=== PATIENT | female | born 1950 | race Caucasian/White ===

== ENCOUNTER 2017-03-04 12:51 | Inpatient (IN) ==
--- NOTE | 2017-03-04 14:51 | Emergency Department Note ---
Disposition Clinical Impression: Fever of unknown origin Disposition: Still a Patient Referrals: Corey Phillip MD [Primary Care Provider] - Forms: ED Satisfaction Letter Time of Disposition: 16:53 General Adult HPI - General Chief complaint: ED Fever Stated complaint: Fatigue, fever, joint pain Time Seen by Provider: 03/04/17 14:03 Source: patient, family Mode of arrival: ambulatory Limitations: no limitations Nursing Notes Reviewed: Yes Vital Signs Reviewed: Yes - History of Present Illness HPI Narrative: 66-year-old female Presents to the ED complaining of fever and weakness for one week. she states she has never felt this way before. She states her fever has been between 100.5 and 101.0 for the last week and no Tylenol or ibuprofen as dropped a fever to normal. She states she also has tingling that is in her fingers and toes that comes and goes and is a sharp stabbing pain she states the pain to be 7 out of 10. Patient states the tingling is nonradiating and stays to the fingers and toes it is very random when they occur. Patient also states that she had a tick bite 1.5 weeks ago. It is no signs of rash or bruising around the tick bite. The tick bite was attached for 1 day has not been her normal self recently. They say that she has been forgetting who she is and that she is , she recently stated she was single after she has been for 30 some years. SHe had one bout of diarrhea this morning where was very loose and liquidy stools. She did have a headache on Thursday but it subsided after taking Tylenol. Pain Scale: 6 - Related Data Allergies Allergy/AdvReac Type Severity Reaction Status Date / Time No Known Allergies Allergy Verified 03/04/17 13:00 Constitutional: Reports: fever, chills, weakness, night sweats Eyes: Denies: eye pain, eye discharge, vision change Cardiovascular: Denies: chest pain, palpitations, edema Respiratory: Denies: cough, dyspnea Gastrointestinal: Reports: diarrhea. Denies: abdominal pain, nausea, vomiting Genitourinary: Denies: urgency, dysuria, frequency Musculoskeletal: Denies: back pain, neck pain Integumentary: Reports: lesions (small raised tick bite On left flank). Denies : rash Neurological: Reports: headache, paresthesias. Denies: weakness, numbness Psychiatric: Denies: anxiety, depression Endocrine: Reports: fatigue Hematological/Lymphatic: Denies: easy bleeding Past Medical History - Past Medical History Medical history: Reports: hypertension Surgical history: Reports: cholecystectomy, hysterectomy Psychiatric history: Reports: no psych history - Social History Smoking Status: Never smoker Smokeless Tobacco Status: No Alcohol use: Reports: none Drug use: Reports: none Physical Exam - General Limitations: no limitations General appearance: alert - Head Head exam: atraumatic, normocephalic, normal inspection - Chest Chest inspection: Present: normal inspection, symmetric chest wall rise - Respiratory Respiratory exam: Present: normal lung sounds bilaterally - Cardiovascular Cardiovascular exam: Present: regular rate, normal rhythm, normal heart sounds - Abdominal Exam Abdominal exam: Present: soft, Non-Tender. Absent: tenderness, distention, guarding, rebound, rigidity - Extremities Exam Extremities exam: Present: normal inspection - Expanded Lower Extremity Exam Hip/Pelvis exam: Present: normal inspection - Back Exam Back exam: Present: normal inspection - Neurological Exam Neurological exam: Present: alert, oriented X3 - Skin Skin exam: Present: warm, dry, intact, normal color, other (Tick bite on left flank) Course Course Narrative: Presents to ED complaining of fever and weakness for one week. Patient had a tick bite 1-1/2 weeks ago with no erythema migrans. CBC, CMP, and urinalysis noncontrast head CT to rule out any signs of stroke, infection, electrolyte abnormalities. Upon return of these lab results will consider doing lumbar puncture to check for possible ehlerchiosis or Lyme disease. Cardiac labs are also ordered to rule out cardiac issues causing her fever and weakness. - Reevaluation(s) Reevaluation #1: Evaluation of the patient she is still sitting in bed doing well. Updated her on labs being normal with urinalysis being a possible dirty specimen. CT was negative for signs of head bleed. There was no leukocytosis. With patient still being confused, will order a X ray guided lumbar puncture through interventional radiology due to age of the patient. This will be looking for signs of infection in the CSF patient and family agreed to this plan. Time: 15:56 Vital Signs Temperature 98.0 F 03/04/17 12:55 Pulse Rate 92 03/04/17 12:55 Respiratory Rate 16 03/04/17 12:55 Blood Pressure 116/75 03/04/17 12:55 O2 Sat by Pulse Oximetry 96 03/04/17 12:55 Temperature 98.0 F 03/04/17 12:55 Pulse Rate 89 03/04/17 15:00 Respiratory Rate 16 03/04/17 15:00 Blood Pressure 129/80 03/04/17 15:00 O2 Sat by Pulse Oximetry 95 03/04/17 15:00 Oxygen Delivery Oxygen Delivery Room Air Medical Decision Making - MDM Narrative Medical decision making narrative: Female presents to the ED with fever and weakness for 1 week following a tick bite 1.5 weeks ago. Due to weakness CMP CBC and urinalysis were ran. A chest x -ray and CT without contrast was done. Labs came back negative for signs of infection and electrolyte abnormalities. Urinalysis was a dirty catch. Chest x -ray and head CT were normal. After talking to patient we decided a lumbar puncture via interventional radiology would be the next best step to rule out possibly ehrlichiosis or lyme disease. - Medical Records Medical records reviewed: Yes I reviewed the patient's medical records. - Lab Data Lab results reviewed: Yes I reviewed the patient's lab results. Result diagrams: 03/04/17 15:00 Lab Results 03/04/17 03/04/17 03/04/17 Range/Units 14:22 15:00 15:00 WBC 4.6 (4.3-11.1) K/mcL RBC 4.84 (3.82-4.97) M/mcL Hgb 14.3 (11.5-15.4) g/dL Hct 41.1 (35.3-44.9) % MCV 84.9 (83.0-100.0) fL MCH 29.5 (28.0-33.3) pg MCHC 34.8 (31.6-35.5) g/dL RDW 12.4 (11.5-14.5) % Plt Count 81 L (140-400) K/mcL MPV 12.6 H (9.4-12.4) fL Immature Gran % 0.4 (0-4) % Seg Neutrophils % 81.3 % Lymphocytes % 14.8 % Monocytes % 2.6 % Eosinophils % 0.0 % Basophils % 0.9 % Neutrophils # 3.7 (1.6-8.9) K/mcL Lymphocytes # 0.7 (0.6-4.6) K/mcL Monocytes # 0.1 (0.0-1.3) K/mcL Eosinophils # 0.0 (0.0-0.6) K/mcL Basophils # 0.0 (0.0-0.2) K/mcL Immature Plt Fraction 19.5 H (1.1-6.1) % ESR 7 (0-15) mm/hr PT (9.4-12.1) Seconds INR Total Bilirubin (0.2-1.2) mg/dL Direct Bilirubin (0.0-0.5) mg/dL Indirect Bilirubin (0.0-1.2) mg/dL AST (5-34) Units/L ALT (0-55) Units/L Alkaline Phosphatase (38-126) Units/L Troponin I (0-0.03) ng/mL B-Natriuretic Peptide (0-100) pg/mL Serum Total Protein (6.0-8.3) g/dL Albumin (3.5-5.0) g/dL Globulin (2.4-3.5) g/dL Albumin/Globulin Ratio (1.1-2.2) Urine Color Dark Yellow (Yellow) Urine Clarity Cloudy A (Clear) Urine pH 6.0 (5.0-8.0) pH Units Ur Specific [place] 1.020 (1.010-1.025) Urine Protein 30 H (Neg-Trace) mg/dL Urine Glucose (UA) Normal (Normal) mg/dL Urine Ketones Trace H (Negative) mg/dL Urine Blood Negative (Negative) Urine Nitrite Negative (Negative) Urine Bilirubin Small H (Negative) Urine Urobilinogen Normal (Normal) mg/dL Ur Leukocyte Esterase Negative (Negative) Urine Microscopic RBC 0-3 (0-3) per hpf Urine Microscopic WBC 5-15 H (0-3) per hpf Ur Squamous Epith Cells Many H (None-Few) per lpf Urine Bacteria Moderate H (None-Few) per hpf Hyaline Casts Few (None-Few) per lpf Urine Mucus Few (Few) Urine Yeast Few H (None Seen) per hpf Ur Culture Indicated? YES A (NO) 03/04/17 03/04/17 03/04/17 Range/Units 15:00 15:00 15:00 WBC (4.3-11.1) K/mcL RBC (3.82-4.97) M/mcL Hgb (11.5-15.4) g/dL Hct (35.3-44.9) % MCV (83.0-100.0) fL MCH (28.0-33.3) pg MCHC (31.6-35.5) g/dL RDW (11.5-14.5) % Plt Count (140-400) K/mcL MPV (9.4-12.4) fL Immature Gran % (0-4) % Seg Neutrophils % % Lymphocytes % % Monocytes % % Eosinophils % % Basophils % % Neutrophils # (1.6-8.9) K/mcL Lymphocytes # (0.6-4.6) K/mcL Monocytes # (0.0-1.3) K/mcL Eosinophils # (0.0-0.6) K/mcL Basophils # (0.0-0.2) K/mcL Immature Plt Fraction (1.1-6.1) % ESR (0-15) mm/hr PT 13.6 H (9.4-12.1) Seconds INR 1.3 Total Bilirubin 1.7 H (0.2-1.2) mg/dL Direct Bilirubin 0.7 H (0.0-0.5) mg/dL Indirect Bilirubin 1.0 (0.0-1.2) mg/dL AST 75 H (5-34) Units/L ALT 77 H (0-55) Units/L Alkaline Phosphatase 95 (38-126) Units/L Troponin I 0.00 (0-0.03) ng/mL B-Natriuretic Peptide (0-100) pg/mL Serum Total Protein 7.3 (6.0-8.3) g/dL Albumin 3.8 (3.5-5.0) g/dL Globulin 3.5 (2.4-3.5) g/dL Albumin/Globulin Ratio 1.1 (1.1-2.2) Urine Color (Yellow) Urine Clarity (Clear) Urine pH (5.0-8.0) pH Units Ur Specific [place] (1.010-1.025) Urine Protein (Neg-Trace) mg/dL Urine Glucose (UA) (Normal) mg/dL Urine Ketones (Negative) mg/dL Urine Blood (Negative) Urine Nitrite (Negative) Urine Bilirubin (Negative) Urine Urobilinogen (Normal) mg/dL Ur Leukocyte Esterase (Negative) Urine Microscopic RBC (0-3) per hpf Urine Microscopic WBC (0-3) per hpf Ur Squamous Epith Cells (None-Few) per lpf Urine Bacteria (None-Few) per hpf Hyaline Casts (None-Few) per lpf Urine Mucus (Few) Urine Yeast (None Seen) per hpf Ur Culture Indicated? (NO) 03/04/17 Range/Units 15:00 WBC (4.3-11.1) K/mcL RBC (3.82-4.97) M/mcL Hgb (11.5-15.4) g/dL Hct (35.3-44.9) % MCV (83.0-100.0) fL MCH (28.0-33.3) pg MCHC (31.6-35.5) g/dL RDW (11.5-14.5) % Plt Count (140-400) K/mcL MPV (9.4-12.4) fL Immature Gran % (0-4) % Seg Neutrophils % % Lymphocytes % % Monocytes % % Eosinophils % % Basophils % % Neutrophils # (1.6-8.9) K/mcL Lymphocytes # (0.6-4.6) K/mcL Monocytes # (0.0-1.3) K/mcL Eosinophils # (0.0-0.6) K/mcL Basophils # (0.0-0.2) K/mcL Immature Plt Fraction (1.1-6.1) % ESR (0-15) mm/hr PT (9.4-12.1) Seconds INR Total Bilirubin (0.2-1.2) mg/dL Direct Bilirubin (0.0-0.5) mg/dL Indirect Bilirubin (0.0-1.2) mg/dL AST (5-34) Units/L ALT (0-55) Units/L Alkaline Phosphatase (38-126) Units/L Troponin I (0-0.03) ng/mL B-Natriuretic Peptide 37 (0-100) pg/mL Serum Total Protein (6.0-8.3) g/dL Albumin (3.5-5.0) g/dL Globulin (2.4-3.5) g/dL Albumin/Globulin Ratio (1.1-2.2) Urine Color (Yellow) Urine Clarity (Clear) Urine pH (5.0-8.0) pH Units Ur Specific [place] (1.010-1.025) Urine Protein (Neg-Trace) mg/dL Urine Glucose (UA) (Normal) mg/dL Urine Ketones (Negative) mg/dL Urine Blood (Negative) Urine Nitrite (Negative) Urine Bilirubin (Negative) Urine Urobilinogen (Normal) mg/dL Ur Leukocyte Esterase (Negative) Urine Microscopic RBC (0-3) per hpf Urine Microscopic WBC (0-3) per hpf Ur Squamous Epith Cells (None-Few) per lpf Urine Bacteria (None-Few) per hpf Hyaline Casts (None-Few) per lpf Urine Mucus (Few) Urine Yeast (None Seen) per hpf Ur Culture Indicated? (NO) - Radiology Data Radiology results reviewed: Yes I reviewed the patient's radiology results.
[2017-03-04 15:08] LABS: Bilirubin,Urine Small (Negative); Blood,Urine Negative (Negative); Clarity,Urine Cloudy (Clear); Color,Urine Dark Yellow (Yellow); Glucose,Urine (UA) Normal (Normal); Ketones,Urine Trace mg/dL (Negative); Leukocyte Esterase,Urine Negative (Negative); Nitrite,Urine Negative (Negative); Protein,Urine 30 mg/dL (Neg-Trace); Urobilinogen,Urine Normal (Normal)
[2017-03-04 15:11] LABS: Hyaline Casts,Urine Few per lpf (None-Few); RBC,Urine 0-3 per hpf (0-3); Squamous Epithelial Cell,Urine Many per lpf (None-Few)
[2017-03-04 15:14] LABS: Basophils % 0.9 %; Hemoglobin 14.3 g/dL (11.5-15.4); Mean Corpuscular Hemoglobin 29.5 pg (28.0-33.3); Mean Corpuscular Volume 84.9 fL (83.0-100.0); Red Cell Distribution Width 12.4 % (11.5-14.5)
[2017-03-04 15:16] LABS: Hematocrit 41.1 % (35.3-44.9); Immature Granulocytes % 0.4 % (0-4); Immature Platelets 19.5 % (1.1-6.1); Lymphocytes # 0.7 K/mcL (0.6-4.6); Lymphocytes % 14.8 %; Mean Corpuscular HGB Conc 34.8 g/dL (31.6-35.5); Mean Platelet Volume 12.6 fL (9.4-12.4); Monocytes # 0.1 K/mcL (0.0-1.3); Monocytes % 2.6 %; Neutrophils # 3.7 K/mcL (1.6-8.9); Red Blood Count 4.84 M/mcL (3.82-4.97); Segmented Neutrophils % 81.3 %
[2017-03-04 15:25] LABS: INR 1.3; Prothrombin Time 13.6 Seconds (9.4-12.1)
[2017-03-04 15:30] LABS: Bacteria,Urine Moderate per hpf (None-Few); Mucus,Urine Few (Few); Yeast,Urine Few per hpf (None Seen)
[2017-03-04 15:31] LABS: Alanine Aminotransferase 77 Units/L (0-55); Albumin 3.8 g/dL (3.5-5.0); Albumin/Globulin Ratio 1.1 (1.1-2.2); Alkaline Phosphatase 95 Units/L (38-126); Aspartate Amino Transferase 75 Units/L (5-34); Bilirubin,Direct 0.7 mg/dL (0.0-0.5); Bilirubin,Total 1.7 mg/dL (0.2-1.2); Globulin 3.5 g/dL (2.4-3.5); Total Protein 7.3 g/dL (6.0-8.3)
[2017-03-04 15:33] LABS: Platelet Count 81 K/mcL (140-400)
[2017-03-04] MEDS ORDERED: 0.9 % Sodium Chloride 1,000 ML IVC ONE (15:53)
--- NOTE | 2017-03-04 17:03 | Emergency Department Note ---
Disposition Clinical Impression: Fever of unknown origin, Acute confusion Tick bite Qualifiers: Encounter type: initial encounter Qualified Code(s): W57.XXXA - Bitten or stung by nonvenomous insect and other nonvenomous arthropods, initial encounter Disposition: Admitted As Inpatient Condition: Good Referrals: Corey Phillip MD [Primary Care Provider] - Forms: ED Satisfaction Letter Time of Disposition: 19:28 Fever HPI - General Chief Complaint: ED Fever Stated Complaint: Fatigue, fever, joint pain Time Seen by Provider: 03/04/17 14:03 Source: patient, family Mode of arrival: ambulatory Limitations: no limitations Nursing Notes Reviewed: Yes Vital Signs Reviewed: Yes - History of Present Illness HPI Narrative: Patient signed out to me by Dr. Parry with regards to concern for fever, worsening paresthesias, roughly 1 week after a tick bite. The patient has had a workup here in the emergency department with CSF cultures and labs currently pending. Given the patient's age and medical condition of her back, we will perform interventional radiology to have her lumbar puncture. Patient agrees to this plan. Labs currently pending. The patient is resting comfortably in the bed. The patient has had intermittent episodes of confusion during this complaint. She has been alert and oriented here in the emergency department. Pt Subjective Complaint: fever, malaise, weakness Onset (ago): week(s) (1) Maximum Temperature Reported: 101 F Temperature Source: oral Associated symptoms: Reports: chills, rigors, myalgias, headache, altered mental status Improves with: acetaminophen Worsens with: nothing Treatments prior to arrival fever: acetaminophen - Related Data Allergies Allergy/AdvReac Type Severity Reaction Status Date / Time No Known Allergies Allergy Verified 03/04/17 13:00 All systems ED: reviewed and negative except as stated. Constitutional: Reports: fever, chills, weakness, night sweats Eyes: Denies: eye pain, eye discharge, vision change Cardiovascular: Denies: chest pain, palpitations, edema Respiratory: Denies: cough, dyspnea Gastrointestinal: Reports: diarrhea. Denies: abdominal pain, nausea, vomiting Genitourinary: Denies: urgency, dysuria, frequency Musculoskeletal: Denies: back pain, neck pain Integumentary: Reports: lesions (small raised tick bite On left flank). Denies : rash Neurological: Reports: headache, paresthesias. Denies: weakness, numbness Psychiatric: Denies: anxiety, depression Endocrine: Reports: fatigue Hematological/Lymphatic: Denies: easy bleeding Fever PMH - Past Medical History Medical history: Reports: hypertension Surgical history: Reports: non-contributory Surgical history: Reports: cholecystectomy, hysterectomy Psychiatric history: Reports: no psych history - Social History Smoking Status: Never smoker Alcohol use: Reports: none Drug use: Reports: none Physical Exam - General Limitations: no limitations General appearance: alert, in distress - Head Head exam: atraumatic, normocephalic, normal inspection - Eye Eye exam: Present: normal appearance, PERRL, EOMI - ENT ENT exam: normal exam, normal oropharynx, mucous membranes moist - Chest Chest inspection: Present: normal inspection, symmetric chest wall rise - Respiratory Respiratory exam: Present: normal lung sounds bilaterally - Cardiovascular Cardiovascular exam: Present: regular rate, normal rhythm, normal heart sounds - Abdominal Exam Abdominal exam: Present: soft, Non-Tender. Absent: tenderness, distention, guarding, rebound, rigidity - Extremities Exam Extremities exam: Present: normal inspection, full ROM. Absent: tenderness, pedal edema - Neurological Exam Neurological exam: Present: alert, oriented X3, CN II-XII intact, normal gait. Absent: motor sensory deficit - Skin Skin exam: Present: warm, dry, intact, normal color Course - Reevaluation(s) Reevaluation #1: Patient returned from interventional radiology from lumbar puncture. CSF is fairly unremarkable and x-rays no acute findings. Given the patient's symptoms we consulted neurology. In addition the neurologist requested that we consult infectious disease. We will admit the patient to the hospitalist service. Currently awaiting return call from infectious disease. Ammonia level obtained due to elevated transaminases and bilirubin. Patient has no history of alcohol use or abuse. Time: 18:18 - Consultations Consultation #1: Spoke with Dr. Shore in neurology who agreed that this is likely infectious versus metabolic and unlikely neurological in origin at least with common findings. Time: 18:17 Vital Signs Temperature 98.0 F 03/04/17 12:55 Pulse Rate 92 03/04/17 12:55 Respiratory Rate 16 03/04/17 12:55 Blood Pressure 116/75 03/04/17 12:55 O2 Sat by Pulse Oximetry 96 03/04/17 12:55 Temperature 98.0 F 07/05/17 12:55 Pulse Rate 89 03/04/17 18:03 Respiratory Rate 20 03/04/17 18:03 Blood Pressure 124/70 03/04/17 18:03 O2 Sat by Pulse Oximetry 93 03/04/17 18:03 Oxygen Delivery Oxygen Delivery Room Air Fever - MDM Narrative Medical decision making narrative: Workup in the emergency department demonstrates no acute process. After multiple consultants and labs and imaging studies there is still a fever without unknown origin. We will admit the patient to the hospitalist for further workup. Accepted by Dr. Pope. - Lab Data Lab results reviewed: Yes I reviewed the patient's lab results. Result diagrams: 03/04/17 15:00 03/04/17 15:00 Lab Results 03/04/17 03/04/17 03/04/17 Range/Units 14:22 15:00 15:00 WBC 4.6 (4.3-11.1) K/mcL RBC 4.84 (3.82-4.97) M/mcL Hgb 14.3 (11.5-15.4) g/dL Hct 41.1 (35.3-44.9) % MCV 84.9 (83.0-100.0) fL MCH 29.5 (28.0-33.3) pg MCHC 34.8 (31.6-35.5) g/dL RDW 12.4 (11.5-14.5) % Plt Count 81 L (140-400) K/mcL MPV 12.6 H (9.4-12.4) fL Immature Gran % 0.4 (0-4) % Seg Neutrophils % 81.3 % Lymphocytes % 14.8 % Monocytes % 2.6 % Eosinophils % 0.0 % Basophils % 0.9 % Neutrophils # 3.7 (1.6-8.9) K/mcL Lymphocytes # 0.7 (0.6-4.6) K/mcL Monocytes # 0.1 (0.0-1.3) K/mcL Eosinophils # 0.0 (0.0-0.6) K/mcL Basophils # 0.0 (0.0-0.2) K/mcL Immature Plt Fraction 19.5 H (1.1-6.1) % ESR 7 (0-15) mm/hr PT (9.4-12.1) Seconds INR Sodium (136-145) mEq/L Potassium (3.5-4.5) mEq/L Chloride (98-109) mEq/L Carbon Dioxide (19-29) mEq/L BUN (7-20) mg/dL Creatinine (0.57-1.11) mg/dL Est GFR ( Amer) (> 60) Est GFR (Non-Af Amer) (> 60) BUN/Creatinine Ratio (6-26) Glucose (70-99) mg/dL Calculated Osmolality (280-300) Calcium (8.6-10.8) mg/dL Total Bilirubin (0.2-1.2) mg/dL Direct Bilirubin (0.0-0.5) mg/dL Indirect Bilirubin (0.0-1.2) mg/dL AST (5-34) Units/L ALT (0-55) Units/L Alkaline Phosphatase (38-126) Units/L Ammonia (18-72) mcmol/L Troponin I (0-0.03) ng/mL B-Natriuretic Peptide (0-100) pg/mL Serum Total Protein (6.0-8.3) g/dL Albumin (3.5-5.0) g/dL Globulin (2.4-3.5) g/dL Albumin/Globulin Ratio (1.1-2.2) Urine Color Dark Yellow (Yellow) Urine Clarity Cloudy A (Clear) Urine pH 6.0 (5.0-8.0) pH Units Ur Specific [place] 1.020 (1.010-1.025) Urine Protein 30 H (Neg-Trace) mg/dL Urine Glucose (UA) Normal (Normal) mg/dL Urine Ketones Trace H (Negative) mg/dL Urine Blood Negative (Negative) Urine Nitrite Negative (Negative) Urine Bilirubin Small H (Negative) Urine Urobilinogen Normal (Normal) mg/dL Ur Leukocyte Esterase Negative (Negative) Urine Microscopic RBC 0-3 (0-3) per hpf Urine Microscopic WBC 5-15 H (0-3) per hpf Ur Squamous Epith Cells Many H (None-Few) per lpf Urine Bacteria Moderate H (None-Few) per hpf Hyaline Casts Few (None-Few) per lpf Urine Mucus Few (Few) Urine Yeast Few H (None Seen) per hpf Ur Culture Indicated? YES A (NO) CSF Volume mL CSF Appearance (Clear) CSF Color (Colorless) CSF RBC (0.000 - 0.002) M/mcL CSF Tot Nucleated Cells (0-5) TNC/mcL CSF Glucose (40-70) mg/dL CSF Total Protein (15-45) mg/dL 03/04/17 03/04/17 03/04/17 Range/Units 15:00 15:00 15:00 WBC (4.3-11.1) K/mcL RBC (3.82-4.97) M/mcL Hgb (11.5-15.4) g/dL Hct (35.3-44.9) % MCV (83.0-100.0) fL MCH (28.0-33.3) pg MCHC (31.6-35.5) g/dL RDW (11.5-14.5) % Plt Count (140-400) K/mcL MPV (9.4-12.4) fL Immature Gran % (0-4) % Seg Neutrophils % % Lymphocytes % % Monocytes % % Eosinophils % % Basophils % % Neutrophils # (1.6-8.9) K/mcL Lymphocytes # (0.6-4.6) K/mcL Monocytes # (0.0-1.3) K/mcL Eosinophils # (0.0-0.6) K/mcL Basophils # (0.0-0.2) K/mcL Immature Plt Fraction (1.1-6.1) % ESR (0-15) mm/hr PT 13.6 H (9.4-12.1) Seconds INR 1.3 Sodium 132 L (136-145) mEq/L Potassium 3.2 L (3.5-4.5) mEq/L Chloride 94 L (98-109) mEq/L Carbon Dioxide 26 (19-29) mEq/L BUN 14 (7-20) mg/dL Creatinine 0.90 (0.57-1.11) mg/dL Est GFR ( Amer) > 60 (> 60) Est GFR (Non-Af Amer) > 60 (> 60) BUN/Creatinine Ratio 16 (6-26) Glucose 122 H (70-99) mg/dL Calculated Osmolality 276 L (280-300) Calcium 9.1 (8.6-10.8) mg/dL Total Bilirubin 1.7 H (0.2-1.2) mg/dL Direct Bilirubin 0.7 H (0.0-0.5) mg/dL Indirect Bilirubin 1.0 (0.0-1.2) mg/dL AST 75 H (5-34) Units/L ALT 77 H (0-55) Units/L Alkaline Phosphatase 95 (38-126) Units/L Ammonia (18-72) mcmol/L Troponin I 0.00 (0-0.03) ng/mL B-Natriuretic Peptide (0-100) pg/mL Serum Total Protein 7.3 (6.0-8.3) g/dL Albumin 3.8 (3.5-5.0) g/dL Globulin 3.5 (2.4-3.5) g/dL Albumin/Globulin Ratio 1.1 (1.1-2.2) Urine Color (Yellow) Urine Clarity (Clear) Urine pH (5.0-8.0) pH Units Ur Specific [place] (1.010-1.025) Urine Protein (Neg-Trace) mg/dL Urine Glucose (UA) (Normal) mg/dL Urine Ketones (Negative) mg/dL Urine Blood (Negative) Urine Nitrite (Negative) Urine Bilirubin (Negative) Urine Urobilinogen (Normal) mg/dL Ur Leukocyte Esterase (Negative) Urine Microscopic RBC (0-3) per hpf Urine Microscopic WBC (0-3) per hpf Ur Squamous Epith Cells (None-Few) per lpf Urine Bacteria (None-Few) per hpf Hyaline Casts (None-Few) per lpf Urine Mucus (Few) Urine Yeast (None Seen) per hpf Ur Culture Indicated? (NO) CSF Volume mL CSF Appearance (Clear) CSF Color (Colorless) CSF RBC (0.000 - 0.002) M/mcL CSF Tot Nucleated Cells (0-5) TNC/mcL CSF Glucose (40-70) mg/dL CSF Total Protein (15-45) mg/dL 03/04/17 03/04/17 03/04/17 Range/Units 15:00 16:55 16:55 WBC (4.3-11.1) K/mcL RBC (3.82-4.97) M/mcL Hgb (11.5-15.4) g/dL Hct (35.3-44.9) % MCV (83.0-100.0) fL MCH (28.0-33.3) pg MCHC (31.6-35.5) g/dL RDW (11.5-14.5) % Plt Count (140-400) K/mcL MPV (9.4-12.4) fL Immature Gran % (0-4) % Seg Neutrophils % % Lymphocytes % % Monocytes % % Eosinophils % % Basophils % % Neutrophils # (1.6-8.9) K/mcL Lymphocytes # (0.6-4.6) K/mcL Monocytes # (0.0-1.3) K/mcL Eosinophils # (0.0-0.6) K/mcL Basophils # (0.0-0.2) K/mcL Immature Plt Fraction (1.1-6.1) % ESR (0-15) mm/hr PT (9.4-12.1) Seconds INR Sodium (136-145) mEq/L Potassium (3.5-4.5) mEq/L Chloride (98-109) mEq/L Carbon Dioxide (19-29) mEq/L BUN (7-20) mg/dL Creatinine (0.57-1.11) mg/dL Est GFR ( Amer) (> 60) Est GFR (Non-Af Amer) (> 60) BUN/Creatinine Ratio (6-26) Glucose (70-99) mg/dL Calculated Osmolality (280-300) Calcium (8.6-10.8) mg/dL Total Bilirubin (0.2-1.2) mg/dL Direct Bilirubin (0.0-0.5) mg/dL Indirect Bilirubin (0.0-1.2) mg/dL AST (5-34) Units/L ALT (0-55) Units/L Alkaline Phosphatase (38-126) Units/L Ammonia (18-72) mcmol/L Troponin I (0-0.03) ng/mL B-Natriuretic Peptide 37 (0-100) pg/mL Serum Total Protein (6.0-8.3) g/dL Albumin (3.5-5.0) g/dL Globulin (2.4-3.5) g/dL Albumin/Globulin Ratio (1.1-2.2) Urine Color (Yellow) Urine Clarity (Clear) Urine pH (5.0-8.0) pH Units Ur Specific [place] (1.010-1.025) Urine Protein (Neg-Trace) mg/dL Urine Glucose (UA) (Normal) mg/dL Urine Ketones (Negative) mg/dL Urine Blood (Negative) Urine Nitrite (Negative) Urine Bilirubin (Negative) Urine Urobilinogen (Normal) mg/dL Ur Leukocyte Esterase (Negative) Urine Microscopic RBC (0-3) per hpf Urine Microscopic WBC (0-3) per hpf Ur Squamous Epith Cells (None-Few) per lpf Urine Bacteria (None-Few) per hpf Hyaline Casts (None-Few) per lpf Urine Mucus (Few) Urine Yeast (None Seen) per hpf Ur Culture Indicated? (NO) CSF Volume 7.0 mL CSF Appearance Clear (Clear) CSF Color Colorless (Colorless) CSF RBC < 0.002 (0.000 - 0.002) M/mcL CSF Tot Nucleated Cells < 3 (0-5) TNC/mcL CSF Glucose 71 H (40-70) mg/dL CSF Total Protein 18 (15-45) mg/dL 03/04/17 Range/Units 18:16 WBC (4.3-11.1) K/mcL RBC (3.82-4.97) M/mcL Hgb (11.5-15.4) g/dL Hct (35.3-44.9) % MCV (83.0-100.0) fL MCH (28.0-33.3) pg MCHC (31.6-35.5) g/dL RDW (11.5-14.5) % Plt Count (140-400) K/mcL MPV (9.4-12.4) fL Immature Gran % (0-4) % Seg Neutrophils % % Lymphocytes % % Monocytes % % Eosinophils % % Basophils % % Neutrophils # (1.6-8.9) K/mcL Lymphocytes # (0.6-4.6) K/mcL Monocytes # (0.0-1.3) K/mcL Eosinophils # (0.0-0.6) K/mcL Basophils # (0.0-0.2) K/mcL Immature Plt Fraction (1.1-6.1) % ESR (0-15) mm/hr PT (9.4-12.1) Seconds INR Sodium (136-145) mEq/L Potassium (3.5-4.5) mEq/L Chloride (98-109) mEq/L Carbon Dioxide (19-29) mEq/L BUN (7-20) mg/dL Creatinine (0.57-1.11) mg/dL Est GFR ( Amer) (> 60) Est GFR (Non-Af Amer) (> 60) BUN/Creatinine Ratio (6-26) Glucose (70-99) mg/dL Calculated Osmolality (280-300) Calcium (8.6-10.8) mg/dL Total Bilirubin (0.2-1.2) mg/dL Direct Bilirubin (0.0-0.5) mg/dL Indirect Bilirubin (0.0-1.2) mg/dL AST (5-34) Units/L ALT (0-55) Units/L Alkaline Phosphatase (38-126) Units/L Ammonia 17 L (18-72) mcmol/L Troponin I (0-0.03) ng/mL B-Natriuretic Peptide (0-100) pg/mL Serum Total Protein (6.0-8.3) g/dL Albumin (3.5-5.0) g/dL Globulin (2.4-3.5) g/dL Albumin/Globulin Ratio (1.1-2.2) Urine Color (Yellow) Urine Clarity (Clear) Urine pH (5.0-8.0) pH Units Ur Specific [place] (1.010-1.025) Urine Protein (Neg-Trace) mg/dL Urine Glucose (UA) (Normal) mg/dL Urine Ketones (Negative) mg/dL Urine Blood (Negative) Urine Nitrite (Negative) Urine Bilirubin (Negative) Urine Urobilinogen (Normal) mg/dL Ur Leukocyte Esterase (Negative) Urine Microscopic RBC (0-3) per hpf Urine Microscopic WBC (0-3) per hpf Ur Squamous Epith Cells (None-Few) per lpf Urine Bacteria (None-Few) per hpf Hyaline Casts (None-Few) per lpf Urine Mucus (Few) Urine Yeast (None Seen) per hpf Ur Culture Indicated? (NO) CSF Volume mL CSF Appearance (Clear) CSF Color (Colorless) CSF RBC (0.000 - 0.002) M/mcL CSF Tot Nucleated Cells (0-5) TNC/mcL CSF Glucose (40-70) mg/dL CSF Total Protein (15-45) mg/dL - Radiology Data Radiology results reviewed: Yes I reviewed the patient's radiology results.
[2017-03-04 17:43] LABS: Red Blood Cell,CSF < 0.002 M/mcL
[2017-03-04 17:45] LABS: BUN/Creatinine Ratio 16 (6-26); Blood Urea Nitrogen 14 mg/dL (7-20); Calcium 9.1 mg/dL (8.6-10.8); Carbon Dioxide 26 mEq/L (19-29); Chloride 94 mEq/L (98-109); Glucose 122 mg/dL (70-99); Osmolality,Calculated 276 (280-300); Potassium 3.2 mEq/L (3.5-4.5); Sodium 132 mEq/L (136-145); eGFR For African Americans > 60 (> 60); eGFR For Non-African Americans > 60 (> 60)
[2017-03-04 17:47] LABS: Appearance,CSF Clear (Clear)
[2017-03-04] MEDS ORDERED: Ondansetron 4 MG/2 ML VIAL ONE (17:50)
[2017-03-04] MEDS: Ondansetron 4 MG/2 ML VIAL IVP ONE ×2 (17:57→18:02)
[2017-03-04 18:01] LABS: Glucose,CSF 71 mg/dL (40-70); Total Protein,CSF 18 mg/dL (15-45)
[2017-03-04] MEDS ORDERED: Potassium Chloride Elixir 20 MEQ/15 ML UDC PO ONE (19:37)
[2017-03-04] MEDS ORDERED: Naloxone 0.4 MG/ML INJ IVP PRN (19:45)
[2017-03-04] MEDS ORDERED: Ondansetron 4 MG/2 ML VIAL IVP PRN (19:45)
--- NOTE | 2017-03-04 20:06 | Internal Med History&Physical ---
Date of Encounter: 03/04/17 Time of Encounter: 20:04 Assessment and Plan (1) Acute encephalopathy Current visit: Yes Status: Acute based on the chronology of events this is most likely related to the tick bite, CSF from the lumbar puncture was grossly normal, no leucocytosis noted, though she reported subjective fevers, none has been recorded since her presentation, we will follow microbiology and serology, neurology and infectious disease to weigh in (2) Tick bite Current visit: Yes Status: Acute as reported above, at this time we are unable to verify which species of tick patient encountered, her EKG was essentially normal except TW abnormality, an old EKG was unavailable for comparison, Qualifiers: Encounter type: initial encounter Qualified Code(s): W57.XXXA - Bitten or stung by nonvenomous insect and other nonvenomous arthropods, initial encounter (3) Hypokalemia Current visit: Yes Status: Acute nay be related to inadequate intake and GI loss, we will replace and follow BMP (4) HTN (hypertension) Current visit: Yes Status: Chronic normotensive on admission, she is on low doses of antihypertensives which we will continue with holding parameters of SBP<90mmHg and HR<55bpm Qualifiers: Hypertension type: essential hypertension Qualified Code(s): I10 - Essential (primary) hypertension Internal Medicine - H&P: HPI Chief complaint: fever and confusion Admitted From: Emergency Dept Plans for Post Hospital Care: Home History of present illness: Ms. Lucia is a 66 year old female with a history of prior tick bites in November that was uncomplicated who was brought in this evening with fever and confusion. She reports that about 1.5 weeks ago she went raspberry picking with her and later found 4 ticks on her body. 2 were just moving around but the other 2 were attached to her abdomen and left side, she got the abdominal wall tick off and her removed the one on her left side. She feels that these ticks had been attached for about a day. Subsequently a week prior to presentation she began to have intermittent fevers, generalized malaise, one time headache that was new, sensation of tingling and numbness at the tips of her fingers and toes. No neck pain reported but she feels that since she has been lying in bed mostly for the past 2 days her neck feels stiff. She denies any rash at the locations of these tick bites, she reports confusion for the past couple of days as well as chills and nausea with loose stools today. Her appetite is poor and she has subjectively lost about 10LBS in one week. She has had tick bites in the past but none has been followed by these constellation of symptoms. Past Med Surg Social Fam HX - Past Medical History Source: patient, old records reviewed Medical history: hypertension, other (irregular heart beat) Psychiatric history: no psych history - Past Surgical History Surgical History: cholecystectomy (2005), hysterectomy (2000), other (reduction mammoplasty 1991, polypectomy during colonoscopy) - Social History Smoking Status: Never smoker Smokeless Tobacco Status: No Alcohol use: none Drug use: none Current living situation: Home - Independent Activity Level: Independent ambulation - Family History Mother Living Status: Age at : 86 Cause of : Dementia Hx Family Cardiac Disorders: Yes Father Living Status: Age at : 67 Cause of : Liver cancer Hx Family Cancer: Yes Paternal Grandmother Living Status: Cause of : Stroke Maternal Grandmother Living Status: Hx Family Cardiac Disorders: Yes (CHF) - Additional Family History Additional family history: both father and uncle have liver cancer, both parents have heart disease, maternal grandmother had a stroke, Internal Medicine - H&P: Meds Aspirin Enteric Coated [Aspirin EC] 81 mg PO DAILY 03/04/17 [History] Carvedilol [Coreg] 6.25 mg PO BIDWM 03/04/17 [History] Cholecalciferol (Vitamin D3) [Vitamin D3] 5,000 unit PO DAILY 03/04/17 [History] Indapamide [Lozol] 1.25 mg PO DAILY 03/04/17 [History] Lisinopril 2.5 mg PO DAILY 03/04/17 [History] Simvastatin [Zocor] 40 mg PO HS 03/04/17 [History] Allergies No Known Allergies Allergy (Verified 03/04/17 13:00) All Systems PM: A 10-system review of systems was performed and is negative for pertinent findings except as documented above in the HPI. - Constitutional Vitals: Temp Pulse Resp BP Pulse Ox 98.0 F 89 20 124/70 93 03/04/17 12:55 03/04/17 18:03 03/04/17 18:03 03/04/17 18:03 03/04/17 18:03 GENERAL: Adult female, looking miserable, Alert, HEENT: NC/AT, EOMI, PERRLA, anicteric sclera, normal conjunctiva, supple, clear nares, dry mucous membranes, RESP: Lungs are clear to auscultation bilaterally, good AE bilaterally, No crackles or wheeze CARDIO: Normal hearts sounds; S1 and 2, RRR with no murmurs, no JVD, no ankle edema GI: Soft, full, no tenderness, no organomegaly felt, normal bowel sounds heard MUSCULOSKELETAL: grossly normal movements bilaterally, no deformities noted, no calf tenderness NEUROLOGIC: CN 2-12 intact grossly. No motor/sensory deficit appreciated, PSYCHIATRY: AAO x 3. SKIN: no skin rash, tick bites noted Internal Med - H&P Results - Labs CBC & Chem 7: 03/04/17 15:00 03/04/17 15:00 - Diagnostic Studies Chest x-ray Status: image reviewed by me CT scan - head Status: image reviewed by me
[2017-03-04] MEDS: Acetaminophen 325 MG TABLET PO PRN (21:03)
[2017-03-05] MEDS: *HR* Heparin 5,000 UNIT/ML VIAL SQ SCH ×2 (00:48→12:54)
[2017-03-05] MEDS: Acetaminophen 325 MG TABLET PO PRN ×2 (03:20→22:35)
[2017-03-05 06:44] LABS: Hematocrit 33.3 % (35.3-44.9); Hemoglobin 11.6 g/dL (11.5-15.4); Immature Platelets 22.2 % (1.1-6.1); Mean Corpuscular HGB Conc 34.8 g/dL (31.6-35.5); Mean Corpuscular Hemoglobin 29.2 pg (28.0-33.3); Mean Corpuscular Volume 83.9 fL (83.0-100.0); Mean Platelet Volume 13.9 fL (9.4-12.4); Monocytes # 0.1 K/mcL (0.0-1.3); Red Blood Count 3.97 M/mcL (3.82-4.97); Red Cell Distribution Width 12.3 % (11.5-14.5)
[2017-03-05 06:55] LABS: BUN/Creatinine Ratio 19 (6-26); Blood Urea Nitrogen 17 mg/dL (7-20); Calcium 7.9 mg/dL (8.6-10.8); Carbon Dioxide 27 mEq/L (19-29); Chloride 97 mEq/L (98-109); Glucose 124 mg/dL (70-99); Magnesium 1.4 mg/dL (1.6-2.6); Osmolality,Calculated 279 (280-300); Phosphorous 2.4 mg/dL (2.3-4.7); Platelet Count 60 K/mcL (140-400); Potassium 2.6 mEq/L (3.5-4.5); Sodium 133 mEq/L (136-145); eGFR For African Americans > 60 (> 60); eGFR For Non-African Americans > 60 (> 60)
[2017-03-05 07:55] LABS: Lymphocytes # 0.9 K/mcL (0.6-4.6); Neutrophils # 4.4 K/mcL (1.6-8.9); Platelet Estimate Decreased (Normal)
[2017-03-05] MEDS: Aspirin Enteric Coated 81 MG Tablet PO SCH (08:27)
[2017-03-05] MEDS: Cholecalciferol (D-3) 1,000 UNIT TABLET PO SCH (08:29)
[2017-03-05] MEDS ORDERED: Potassium Chloride 30 MEQ, Lidocaine 1% 2 ML in D5% in Water 500 ML IVPB ONE (09:19)
--- NOTE | 2017-03-05 12:30 | Electrocardiograph Report ---
[address] [place] [address] Test Date: 2017-03-05 Pat Name: Carine Lucia Department: 113 Room: 3B11 Gender: F [employer] Helper: [id number] : 1950 Requested By: Jair Samaniego Order Number: [id number] Reading MD: Iraj Smith MD Measurements Intervals [place] Rate: 92 P: 35 TX: 173 QRS: 6 QRSD: 106 T: 32 QT: 381 QTc: 431 Interpretive Statements SINUS RHYTHM ANTERIOR ISCHEMIA Electronically Signed On 03-05-2017 12:29:17 EDT by Iraj Smith MD
--- NOTE | 2017-03-05 14:25 | Neurology - Consult Note ---
Date of Encounter: 03/05/17 Time of Encounter: 14:21 Assessment and Plan (1) Acute confusion Current Visit: Yes Status: Acute I find absolutely no evidence of an acute process involving the central, or peripheral nervous system. Her neurologic examination at this time is normal. This is interesting considering that she is only received a fluid hydration and supplemental potassium. Her CT scan of the head was unremarkable, the spinal tap was essentially normal. No abnormality identifiable with her urinalysis which revealed elevated WBCs, moderate bacteria and culture was positive for gram-negative rods. At this point I do not believe that any further neurologic testing is indicated. I will reevaluate her your request. History of Present Illness HPI: Ms. Lucia is a 66 year old female who is being seen for neurologic consultation secondary to generalized fatigue with minor confusion. She states that symptoms began a week ago today when she developed fever in the day later developed "mouth sores". 3 days after the onset of these symptoms she went to the urgent care and was told that there was likely a viral illness and apparently sent home. Yesterday apparently she had a visit with her primary care provider who sent her to the ED for further assessment. She also complains of minor concerns "cloudiness" she stated that she had trouble with memory however she remembers specific things that she forgot yesterday for instance providing her address when the information requested was a telephone number. It does not seem that she was at any time encephalopathic. She denies headache. Denies visual changes. Denies amnesia. Apparently she was bitten by a tick 2 weeks ago and has had complaints of generalized aches and pains since. She feels better today since being hydrated. She has not been given any antibiotic therapy. She is also given potassium IV. She denies numbness or tingling of the face arms or legs, denies stress. Denies any new medications denies any chest pain denies heart palpitations denies any visual changes. Lumbar puncture was performed in the ED and did not reveal any evidence of infection or inflammation. CT scan of the head was unremarkable. She complains of weakness however actually feel she is expressing fatigue. Urinalysis did reveal the presence of WBCs, bacteria. Urine culture was positive for gram-negative rods. Sodium was low at 132, potassium 3.2, chloride 94, carbon dioxide 26. BUN/creatinine were 14 and 0.90 respectively. Glucose was 122. AST was elevated at 75, AST elevated at 77. Ammonia was low at 17. CSF appearance was clear and colorless RBCs were absent CSF total nucleated cells were less than 3, protein is normal at 18 glucose was elevated at 71. Past Med Surg Social Fam HX - Past Medical History Medical history: hypertension, other (irregular heart beat) Psychiatric history: no psych history - Past Surgical History Surgical History: cholecystectomy (2005), hysterectomy (2000), other (reduction mammoplasty 1991, polypectomy during colonoscopy) - Social History Smoking Status: Never smoker Smokeless Tobacco Status: No Alcohol use: none Drug use: none - Family History Mother Living Status: Age at : 86 Cause of : Dementia Hx Family Cardiac Disorders: Yes Father Living Status: Age at : 67 Cause of : Liver cancer Hx Family Cancer: Yes Paternal Grandmother Living Status: Cause of : Stroke Maternal Grandmother Living Status: Hx Family Cardiac Disorders: Yes (CHF) Medications and Allergies Aspirin Enteric Coated [Aspirin EC] 81 mg PO DAILY 03/04/17 [History] Carvedilol [Coreg] 6.25 mg PO BIDWM 03/04/17 [History] Cholecalciferol (Vitamin D3) [Vitamin D3] 5,000 unit PO DAILY 03/04/17 [History] Indapamide [Lozol] 1.25 mg PO DAILY 03/04/17 [History] Lisinopril 2.5 mg PO DAILY 03/04/17 [History] Simvastatin [Zocor] 40 mg PO HS 03/04/17 [History] Allergies No Known Allergies Allergy (Verified 03/04/17 13:00) All Systems: A 10-system review of systems was performed and is negative for pertinent findings except as documented above in the HPI. Review of Systems: 10 point review of systems is consistent with a history of present illness and otherwise negative. Physical Examination - Vital Signs Vital Signs: Initial Vital Signs Temp Pulse Resp BP Pulse Ox 98.0 F 92 16 116/75 96 03/04/17 12:55 03/04/17 12:55 03/04/17 12:55 03/04/17 12:55 03/04/17 12:55 - Neurologic Detailed motor examination: full strength in all major muscle groups Motor examination - right side: 5/5: deltoids, biceps, triceps, wrist flexion, wrist extension, tube repairer, hip flexors, tibialis Anterior, quadriceps, toe extension (EHL), plantarflexion Motor examination - left side: 01/02: deltoids, biceps, triceps, wrist flexion, wrist extension, hip flexors, tube repairer, quadriceps, tibialis Anterior, toe extension (EHL), plantarflexion Mental Status Examination: awake, alert, oriented to person, oriented to place, oriented to time, follows commands appropriately, answers questions appropriately, no agnosia, no aphasia, no aproxia Cranial nerve examination: PERRL, EOMI, visual kitchen intact, corneal reflexes brisk symmetrically, sensory to face intact, mastication intact, no facial asymmetry is present, no dysarthria, hearing is intact symmetrically, soft palate elevates bilaterally upon phonation, gag reflex intact, flexes SCM and trapezius muscles symmetrically with full power, tongue protrudes midline, no atrophy or facial fasiculations present Cerebellar examination: no dysmetria, performs finger to nose and heel to yates symmetrically without ataxia, no gait ataxia, no truncal ataxia, no difficulty with rapid alternating movements Results - Laboratory Findings CBC and BMP: 03/05/17 05:21 03/05/17 05:21 Abnormal lab findings: Abnormal lab results Hct 33.3 % (35.3-44.9) L 03/05/17 05:21 Plt Count 60 K/mcL (140-400) L 03/05/17 05:21 MPV 13.9 fL (9.4-12.4) H 03/05/17 05:21 Band Neutrophils % 42.0 % (0-4) H 03/05/17 05:21 Platelet Estimate Decreased (Normal) L 03/05/17 05:21 Immature Plt Fraction 22.2 % (1.1-6.1) H 03/05/17 05:21 PT 13.6 Seconds (9.4-12.1) H 03/04/17 15:00 Sodium 133 mEq/L (136-145) L 03/05/17 05:21 Potassium 2.6 mEq/L (3.5-4.5) L 03/05/17 05:21 Chloride 97 mEq/L (98-109) L 03/05/17 05:21 Glucose 124 mg/dL (70-99) H 03/05/17 05:21 Calculated Osmolality 279 (280-300) L 03/05/17 05:21 Calcium 7.9 mg/dL (8.6-10.8) L 03/05/17 05:21 Magnesium 1.4 mg/dL (1.6-2.6) L 03/05/17 05:21 Total Bilirubin 1.7 mg/dL (0.2-1.2) H 03/04/17 15:00 Direct Bilirubin 0.7 mg/dL (0.0-0.5) H 03/04/17 15:00 AST 75 Units/L (5-34) H 03/04/17 15:00 ALT 77 Units/L (0-55) H 03/04/17 15:00 Ammonia 17 mcmol/L (18-72) L 03/04/17 18:16 Urine Clarity Cloudy (Clear) A 03/04/17 14:22 Urine Protein 30 mg/dL (Neg-Trace) H 03/04/17 14:22 Urine Ketones Trace mg/dL (Negative) H 03/04/17 14:22 Urine Bilirubin Small (Negative) H 03/04/17 14:22 Urine Microscopic WBC 5-15 per hpf (0-3) H 03/04/17 14:22 Ur Squamous Epith Cells Many per lpf (None-Few) H 03/04/17 14:22 Urine Bacteria Moderate per hpf (None-Few) H 03/04/17 14:22 Urine Yeast Few per hpf (None Seen) H 03/04/17 14:22 Ur Culture Indicated? YES (NO) A 03/04/17 14:22 CSF Glucose 71 mg/dL (40-70) H 03/04/17 16:55 Consult Discharge Plan - Plan Referrals: Corey Phillip MD [Primary Care Provider] - 03/13/17 4:00 pm
[2017-03-05] MEDS: Doxycycline 100 MG CAPSULE PO SCH ×2 (14:28→22:36)
--- NOTE | 2017-03-05 15:08 | Infectious Disease Consult ---
Date of Encounter: 03/05/17 Time of Encounter: 14:54 Assessment and Plan (1) Severe sepsis Status: Acute Assessment and plan: The patient has two SIRS criteria plus thrombocytopenia, encephalopathy, and elevated LFTs. Etiology unclear. The patient continues to have intermittent fevers with Tmax 104. Blood cultures drawn in the ER x 2 sets are pending. Status post LP. CSF shows TNC<3. CSF culture preliminarily negative. CXR and CT head are negative. The patient has no focal symptoms indicative of source of infection. Await blood culture results. Check procalcitonin. Check respiratory infection panel. Check lactic acid. Check HIV. (2) Acute encephalopathy Status: Resolved Assessment and plan: Etiology unclear --> sepsis vs. other. CT of the head negative. Status post LP that is not indicative of infection. Per the patient's family, her mental status is improved, but not completely back to baseline. Neurology consulted. Await recommendations. (3) Thrombocytopenia Status: Acute Assessment and plan: Etiology unclear --> sepsis vs. tick-borne illness vs. other. No evidence of acute bleeding. Continue to trend. (4) Elevated LFTs Status: Acute Assessment and plan: Etiology unclear--> sepsis vs. tick-borne illness vs. other. Abdominal exam benign. Continue to trend. (5) Tick bite Status: Acute Assessment and plan: The patient reports a tick bite two weeks prior to presentation. States it was attached, but was there for less than a few hours. Denies any recent rash, but the clinical and lab picture (arthralgias, fever, confusion, elevated LFTs, and thrombocytopenia) could be indicative tick-borne illness. CSF tick-panel pending. Start doxycyline 100mg PO BID empirically and evaluate for response to treatment. Duration of treatment depends on the clinical picture. Qualifiers: Encounter type: initial encounter Qualified Code(s): W57.XXXA - Bitten or stung by nonvenomous insect and other nonvenomous arthropods, initial encounter (6) Hypokalemia Status: Acute Assessment and plan: Etiology unclear --> poor PO intake vs. other. Replacement per the primary team. (7) Asymptomatic bacteriuria Status: Acute Assessment and plan: Urinalysis negative for nitrites and leukocyte esterase, but positive for pyuria. Many epithelial cells noted as well, indicating possible contamination. Urine culture gram stain shows GNR, but the patient is asymptomatic. No further treatment is indicated at this time. Infectious Disease HPI - Data of Consult Patient: new to practice Consult date: 03/05/17 Requesting Physician: Mariama Barbosa CNP Primary Care Provider: Corey Phillip MD - Consult Narrative Reason for consult: Fever History of present illness: Ms. Lucia is a 66 year old female with past medical history of hypertension. The patient was admitted to the hospital March 04 for fever. We are consulted March 05 for further evaluation and treatment recommendations regarding fever without a known source. The patient's a 66-year-old female with a past medical history as stated above. The patient presented to the ER with a 1 week history of fever with associated confusion, arthralgias, severe fatigue, and pain in her fingers and toes. The patient reported tick bite about 2 weeks prior to presentation, but denies any associated rash. Upon arrival, patient was afebrile, but was mildly tachycardic. Laboratory studies revealed a normal white blood cell count and thrombocytopenia. Inflammatory markers were normal. The patient was hypokalemic and her LFTs are mildly elevated. Chest x-ray was negative as well as CT of the head. Urinalysis was obtained that was positive for pyuria, but appears contaminated. Patient underwent a CT-guided lumbar puncture that was not indicative of infection. Cultures preliminarily negative. Tick panel on the CSF is pending. The patient was admitted to the hospital for further evaluation and treatment. We've been asked to evaluate and make further recommendations. During my exam today, the patient endorses the history as stated above. The patient's family is also at the bedside and added that the patient has been increasingly confused over the past day prior to admission, which appears to be improved today. The patient states that her fever was as high as 101 at home, and she's been having severe fatigue and diffuse arthralgias. She denies any chills or rigors. She reports a headache on Thursday, but denies any neck pain. She does report some neck stiffness 2 days prior to presentation, but states she thinks this is from lying in bed. She denies any chest pain or shortness of breath, but does report a chronic dry cough. She reports nausea and poor appetite, but denies any vomiting or constipation. She also reports intermittent diarrhea. She denies any abdominal pain. She states she's not noticed any swelling of her lymph nodes. She denies any rashes. She denies any blurred vision, congestion, earache, or sore throat. She denies any pain in her back, but does report multiple joints that are achy. She denies any redness or swelling or tenderness in any of her joints. Overall, the patient states that she is a little better today, but still feeling very fatigued and having diffuse joint pain. The patient lives at home with her . She has two cats and a dog outside. She denies any recent travel. She denies any tobacco, alcohol, or illicit drug use. CC: Mariama Barbosa, PATRIC Past Med Surg Social Fam HX - Past Medical History Attestation: Yes The following information was validated with the patient. Source: patient, old records reviewed, nursing notes reviewed Medical history: hypertension, other (irregular heart beat) Psychiatric history: no psych history - Past Surgical History Surgical History: cholecystectomy (2005), hysterectomy (2000), other (reduction mammoplasty 1991, polypectomy during colonoscopy) - Social History Smoking Status: Never smoker Smokeless Tobacco Status: No Alcohol use: none Drug use: none Occupational status: unemployed Current living situation: Home - Independent Activity Level: Independent ambulation Recent Out of Country Travel Within the Last 8 Weeks: No Exposure or Possible Exposure to Illness During Travel: No - Family History Mother Living Status: Age at : 86 Cause of : Dementia Hx Family Cardiac Disorders: Yes Father Living Status: Age at : 67 Cause of : Liver cancer Hx Family Cancer: Yes Paternal Grandmother Living Status: Cause of : Stroke Maternal Grandmother Living Status: Hx Family Cardiac Disorders: Yes (CHF) Infectious Disease-CN:Meds Aspirin Enteric Coated [Aspirin EC] 81 mg PO DAILY 03/04/17 [History] Carvedilol [Coreg] 6.25 mg PO BIDWM 03/04/17 [History] Cholecalciferol (Vitamin D3) [Vitamin D3] 5,000 unit PO DAILY 03/04/17 [History] Indapamide [Lozol] 1.25 mg PO DAILY 03/04/17 [History] Lisinopril 2.5 mg PO DAILY 03/04/17 [History] Simvastatin [Zocor] 40 mg PO HS 03/04/17 [History] Allergies No Known Allergies Allergy (Verified 03/04/17 13:00) All systems: reviewed and no additional remarkable complaints except as stated Exam - Constitutional Vitals: Temp Pulse Resp BP Pulse Ox 98.4 F 84 16 96/51 95 03/05/17 11:40 03/05/17 11:40 03/05/17 11:40 03/05/17 11:40 03/05/17 11:40 General appearance: average body habitus, cooperative, no acute distress - Head Head exam: Present: atraumatic, normal inspection, normocephalic - Eye Eye exam: Present: EOMI, normal appearance, PERRL Pupils: Present: normal accommodation - ENT ENT exam: Present: mucous membranes moist - Neck Neck exam: Present: normal inspection. Absent: lymphadenopathy, meningismus - Respiratory Respiratory exam: Present: CTAB. Absent: rales, respiratory distress, rhonchi, wheezes - Cardiovascular Cardiovascular exam: Present: irregular rhythm. Absent: tachycardia - GI/Abdominal GI/Abdominal exam: Present: normal bowel sounds, soft. Absent: distended, tenderness - Extremities Exam Extremities exam: Present: normal inspection. Absent: joint swelling, pedal edema, tenderness - Back Exam Back exam: Present: normal inspection, rash noted (flat, maculopapular rash noted to the lower back, non-itching). Absent: CVA tenderness (L), CVA tenderness (R), paraspinal tenderness, vertebral tenderness - Neurological Exam Neurological exam: Present: alert, oriented X3, no focal deficits. Absent: facial droop, speech deficit - Psychiatric Psychiatric exam: Present: normal affect, normal mood - Skin Skin exam: Present: dry, intact, normal color, warm Infectious Disease CN: Results - Labs CBC & Chem 7: 03/06/17 02:41 03/06/17 02:41 Cultures: Cultures 03/04/17 16:55 CSF Culture - Preliminary Cerebral Spinal Fluid 03/04/17 14:22 Urine Culture - Preliminary Urine,Clean Catch Gram Negative Allan - VTE Documentation of Mechanical Device: Intermittent pneumatic compression device Consult Discharge Plan - Plan Referrals: Corey Phillip MD [Primary Care Provider] - 03/13/17 4:00 pm - Attending Attestation I examined this patient and my medical decision-making was reviewed with the [employer]/PA/Advanced Practice Nurse/Resident Physician. I agree with the documented findings, disposition and treatment plan as described except to the extent set forth below. As an addendum to original report dictated by Larisa Hardy CNP, please refer to Brionna gar for full details. Patient is a 66-year-old woman with past medical history mentioned below states for about a week prior to admission has been having persistent fevers that have been intermittent. Patient denied any headache, no neck stiffness, denied any URI symptoms, no chest pain or shortness of breath or cough, no abdominal pain no nausea or vomiting or diarrhea or constipation. Patient denied any urinary symptoms. Patient denied any rash or joint pain or effusion. Patient denied any sick contacts or travel outside of the [place]. Patient does admit to a tick bite about a week prior to symptoms starting. Patient states that she had the tick for about 3 hours and it was not engorged. I asked the patient to see how she was there for 3 hours and she tells me that he have a tick issue where they live and every time they go outside her and her a check each other out and the tick wasnt present 3 hours prior. Since admission patient persistently is febrile and has some leukopenia, thrombocytopenia and elevated LFTs. Etiology for her persistent fever not clear. I do think she fits the profile of ehrlichiosis, even though the tick was only present for 3 hours. I mean the patient lives in a place that has significant thick problem so she might of had another take that she has not noticed. Patient also had an LP which was negative imaging was negative CT head and chest x-ray were negative. I will start empiric doxycycline, check HIV status, check blood cultures, check pro- calcitonin, respiratory infectious panel has been ordered await results. Family and daughter at bedside, questions answered and concerns addressed. Well continue to follow closely. Monitor labs and for drug toxicity.
[2017-03-05 17:31] LABS: Adenovirus Not Detected (Not Detect); Bordetella Pertussis Not Detected (Not Detect); Chlamydophila pneumoniae Not Detected (Not Detect); Coronavirus 229E Not Detected (Not Detect); Coronavirus HKU1 Not Detected (Not Detect); Coronavirus NL63 Not Detected (Not Detect); Coronavirus OC43 Not Detected (Not Detect); Human Metapneumovirus Not Detected (Not Detect); Human Rhinovirus/Enterovirus Not Detected (Not Detect); Influenza A Subtype 2009 H1 Not Detected (Not Detect); Influenza A Untypeable Not Detected (Not Detect); Influenza B Not Detected (Not Detect); Mycoplasma pneumoniae Not Detected (Not Detect); Parainfluenza Virus 1 Not Detected (Not Detect); Parainfluenza Virus 2 Not Detected (Not Detect); Parainfluenza Virus 3 Not Detected (Not Detect); Parainfluenza Virus 4 Not Detected (Not Detect); Respiratory Syncytial Virus Not Detected (Not Detect)
[2017-03-05] MEDS ORDERED: Magnesium Sulfate 2 GM in D5% in Water 100 ML IVPB ONE (18:26)
--- NOTE | 2017-03-05 18:40 | Internal Med Progress Note ---
Date of Encounter: 03/05/17 Time of Encounter: 18:36 - Assessment and plan (1) SIRS (systemic inflammatory response syndrome) Current Visit: Yes Status: Acute (2) Hypomagnesemia Current Visit: Yes Status: Acute (3) Fever of unknown origin Current Visit: Yes Status: Acute (4) Acute confusion Current Visit: Yes Status: Acute (5) Tick bite Current Visit: Yes Status: Acute Qualifiers: Encounter type: initial encounter Qualified Code(s): W57.XXXA - Bitten or stung by nonvenomous insect and other nonvenomous arthropods, initial encounter (6) Acute encephalopathy Current Visit: Yes Status: Acute (7) Hypokalemia Current Visit: Yes Status: Acute (8) Thrombocytopenia Current Visit: Yes Status: Acute (9) Elevated LFTs Current Visit: Yes Status: Acute - Subjective Interval history: Mrs. Carine Lucia is a 66-year-old female presented with a week history of deteriorating symptoms of high fever with headache and neck pain as well as altered mental status and nausea vomiting diarrhea. She was bitten by ticks 2 weeks before she developed these symptoms. Those takes were removed. She went to an urgent care where she was diagnosed with viral illness and was not given any antibiotics. As symptoms did not subside and she was brought to Hospital ER where a CT head was done which was unremarkable. Later a lumbar puncture was performed and again it is neutral for infection. Most of the organisms associated with tick bite for check on the panel and so far they have been reported negative but full report is pending. Infectious disease and neurology has seen the patient. Neurologist essentially did not find any significant finding and rule out any further neurological workup. Infectious disease has a started patient on doxycycline imperatively. On lab studies patient has mildly abnormal liver function test with the total bilirubin 1.7 AST and ALTs in the range of 85 only. Her platelets are down quite significantly in the range of 60 ,000. I have added hepatitis panel ultrasound of the liver and repeat CBC and CMP for tomorrow. I noted she has hypokalemia and hypomagnesemia with potassium 2.6 and magnesium 1.4. We will supplement both and recheck in the morning. Although she has an interesting story for tick bite fever but she is missing a few essential features like absence of rash or any lymphadenopathy. Patient's symptoms are improving. She is afebrile with no headache or neck pain or rigidity and diarrhea has stopped down only 2 episodes so far she is on IV doxycycline. Serologies are pending and I have added ultrasound of the liver and a hepatitis profile considering that her liver function tests are mildly abnormal. We will repeat CBC CMP in the morning. We will want to keep an eye on platelet counts - Constitutional Vitals: Temp Pulse Resp BP Pulse Ox 98.2 F 73 16 113/72 100 03/05/17 16:34 03/05/17 16:34 03/05/17 16:34 03/05/17 16:34 03/05/17 16:34 - Head Head exam: Present: atraumatic, normocephalic - Eye Eye exam: Present: PERRL, conjuntiva pink, sclera anicteric Pupils: Present: PERRL - Neck Neck exam general surgery: Present: supple, trachea midline. Absent: lymphadenopathy - Respiratory Respiratory exam: Present: CTAB. Absent: accessory muscle use, rales, rhonchi, wheezes - Cardiovascular Cardiovascular exam: Present: RRR, +S1, +S2. Absent: diastolic murmur, gallop, rubs, systolic murmur - GI/Abdominal GI/Abdominal exam: Present: normal bowel sounds, soft, no peritoneal signs. Absent: distended, tenderness - Extremities Exam Extremities exam: Present: warm, radial pulses palpable and symetrical. Absent : calf tenderness, cyanotic, pedal edema - Neurological Exam Neurological exam: Present: CN II-XII intact, oriented X3, no focal deficits. Absent: pronater drift, facial droop, speech deficit - Skin Skin exam: Present: dry, intact Internal Medicine: Result - Labs CBC & Chem 7: 03/05/17 05:21 03/05/17 05:21 - ABG Interpretation ABG results: PT/INR, D-dimer PT 13.6 Seconds (9.4-12.1) H 03/04/17 15:00 - VTE Documentation of Mechanical Device: Intermittent pneumatic compression device Consult Discharge Plan - Plan Referrals: Corey Phillip MD [Primary Care Provider] - 03/13/17 4:00 pm
[2017-03-05 21:38] LABS: Hepatitis B Surface Antigen Nonreactive (Nonreactive)
[2017-03-06 03:34] LABS: Red Cell Distribution Width 12.6 % (11.5-14.5)
[2017-03-06 03:36] LABS: Basophils # 0.1 K/mcL (0.0-0.2); Basophils % 1.5 %; Eosinophils % 0.3 %; Hematocrit 35.1 % (35.3-44.9); Hemoglobin 12.1 g/dL (11.5-15.4); Immature Granulocytes % 0.8 % (0-4); Immature Platelets 24.7 % (1.1-6.1); Lymphocytes % 50.8 %; Mean Corpuscular HGB Conc 34.5 g/dL (31.6-35.5); Mean Corpuscular Hemoglobin 29.4 pg (28.0-33.3); Mean Corpuscular Volume 85.4 fL (83.0-100.0); Mean Platelet Volume 13.8 fL (9.4-12.4); Monocytes # 0.3 K/mcL (0.0-1.3); Monocytes % 4.5 %; Neutrophils # 2.5 K/mcL (1.6-8.9); Red Blood Count 4.11 M/mcL (3.82-4.97); Segmented Neutrophils % 42.1 %
[2017-03-06 03:49] LABS: Alanine Aminotransferase 115 Units/L (0-55); Albumin 3.1 g/dL (3.5-5.0); Albumin/Globulin Ratio 1.1 (1.1-2.2); Alkaline Phosphatase 90 Units/L (38-126); Aspartate Amino Transferase 122 Units/L (5-34); BUN/Creatinine Ratio 17 (6-26); Bilirubin,Total 1.2 mg/dL (0.2-1.2); Blood Urea Nitrogen 15 mg/dL (7-20); Calcium 8.2 mg/dL (8.6-10.8); Carbon Dioxide 27 mEq/L (19-29); Chloride 99 mEq/L (98-109); Globulin 2.8 g/dL (2.4-3.5); Glucose 93 mg/dL (70-99); Magnesium 2.1 mg/dL (1.6-2.6); Osmolality,Calculated 281 (280-300); Potassium 3.3 mEq/L (3.5-4.5); Sodium 135 mEq/L (136-145); Total Protein 5.9 g/dL (6.0-8.3); eGFR For African Americans > 60 (> 60); eGFR For Non-African Americans > 60 (> 60)
[2017-03-06 03:57] LABS: Lymphocytes # 3.1 K/mcL (0.6-4.6); Platelet Count 56 K/mcL (140-400)
[2017-03-06 03:59] LABS: Large Platelets Present (Not Present); Platelet Estimate Decreased (Normal); Reactive Lymphocytes Present (Not Present)
[2017-03-06] MEDS: Aspirin Enteric Coated 81 MG Tablet PO SCH (09:56)
[2017-03-06] MEDS: Cholecalciferol (D-3) 1,000 UNIT TABLET PO SCH (09:56)
[2017-03-06] MEDS: Doxycycline 100 MG CAPSULE PO SCH ×2 (09:56→20:51)
[2017-03-06 11:05] LABS: Hepatitis A Antibody IgM Nonreactive (Nonreactive); Hepatitis C Virus Antibody Nonreactive (Nonreactive)
--- NOTE | 2017-03-06 11:24 | Infectious Disease Progress No ---
Date of Encounter: 03/06/17 Time of Encounter: 11:22 - Assessment and Plan (1) Severe sepsis Current Visit: Yes Status: Acute The patient had three SIRS criteria plus thrombocytopenia, encephalopathy, and elevated LFTs. Etiology unclear, but given the clinical picture and her marked response to starting doxycyline, high index of suspicion for tick-borne illness. Improved. The patient has been afebrile since 2200 last night. Her tachycardia and bandemia have resolved. Blood cultures drawn in the ER x 2 sets are NGTD. Status post LP. CSF shows TNC<3. CSF culture preliminarily negative. CXR and CT head are negative. The patient has no focal symptoms indicative of source of infection. Check procalcitonin--> pending. RIP negative. Lactic acid normal. Check HIV --> pending. (2) Acute encephalopathy Current Visit: Yes Status: Resolved Likely secondary to sepsis. 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 CT of the head negative. Status post LP that is not indicative of infection. Per the patient's family, her mental status is improved and is back to baseline this morning. (3) Thrombocytopenia Current Visit: Yes Status: Acute Etiology unclear --> sepsis vs. tick-borne illness vs. other. No evidence of acute bleeding. Continue to trend. (4) Elevated LFTs Current Visit: Yes Status: Acute Etiology unclear--> sepsis vs. tick-borne illness vs. other. Abdominal exam benign, but transaminases a little worse this morning. Abdominal UTS shows diffuse hepatic steatosis with a probable focal area of sparing and a prominent common bile duct. Consider GI consult. (5) Tick bite Current Visit: Yes Status: Acute The patient reports a tick bite two weeks prior to presentation. States it was attached, but was there for less than a few hours. Denies any recent rash, but the clinical and lab picture (arthralgias, fever, confusion, elevated LFTs, and thrombocytopenia) could be indicative tick-borne illness and given that the patient has had marked improvement after starting doxycyline, tick-borne illness is high on my differential. CSF tick-panel pending. Continue doxycyline 100mg PO BID and continue to monitor response. Duration of treatment depends on the clinical picture. Qualifiers: Encounter type: initial encounter Qualified Code(s): W57.XXXA - Bitten or stung by nonvenomous insect and other nonvenomous arthropods, initial encounter (6) Hypokalemia Current Visit: Yes Status: Acute Improved. Further management per the primary team. (7) Asymptomatic bacteriuria Current Visit: Yes Status: Acute Urine culture grew E. coli, but the patient has no urinary complaints. Would not advise starting additional antibiotics given the lack of patient's symptoms and her marked improvement after starting doxycyline. Unlikely that this is a true infection and contributing to the patient's symptoms. - Subjective Interval history: Patient seen and examined. No acute events noted overnight. Patient's family remains at the bedside. Patient states that she feels 100% better today. She states she's not had a fever since last night. She states her arthralgias have resolved. She denies any chills or rigors. She denies any headache or neck pain. She denies chest pain, shortness of breath, or cough. She denies any nausea, vomiting, diarrhea, or constipation. She states she was able to eat breakfast this morning. She denies any urinary complaints. She denies any Oral thrush or new skin lesions. Infect Dis PN-Objective Data - Labs CBC & Chem 7: 03/06/17 02:41 03/06/17 02:41 Labs: Laboratory Results - last 24 hr 03/05/17 03/05/17 03/05/17 14:30 15:34 20:17 WBC RBC Hgb Hct MCV MCH MCHC RDW Plt Count MPV Immature Gran % Seg Neutrophils % Lymphocytes % Monocytes % Eosinophils % Basophils % Neutrophils # Lymphocytes # Monocytes # Eosinophils # Basophils # Reactive Lymphocytes Platelet Estimate Large Platelets Immature Plt Fraction Sodium Potassium Chloride Carbon Dioxide BUN Creatinine Est GFR ( Amer) Est GFR (Non-Af Amer) BUN/Creatinine Ratio Glucose Calculated Osmolality Lactic Acid 1.8 Calcium Magnesium Total Bilirubin AST ALT Alkaline Phosphatase Serum Total Protein Albumin Globulin Albumin/Globulin Ratio Chlamy pneumoniae PCR Not Detected Adenovirus (PCR) Not Detected B. pertussis DNA (PCR) Not Detected Coronavirus OC43 (PCR) Not Detected Coronavirus HKU1 (PCR) Not Detected Coronavirus 229E (PCR) Not Detected Coronavirus NL63 (PCR) Not Detected Hepatitis A IgM Ab Hep Bs Antigen Hepatitis C Ab Screen HIV Ag/Ab Combo Qual Nonreactive Human Metapneumovir PCR Not Detected Influenza A (H1) PCR Not Detected Influ A (H1N1/09) PCR Not Detected Influenza A (H3) PCR Not Detected Influenza A Untype (PCR) Not Detected Influenza Type B (PCR) Not Detected M.pneumoniae DNA (PCR) Not Detected Parainfluenza 1 (PCR) Not Detected Parainfluenza 2 (PCR) Not Detected Parainfluenza 3 (PCR) Not Detected Parainfluenza 4 (PCR) Not Detected RSV (PCR) Not Detected Entero/Rhino (PCR) Not Detected 03/05/17 03/06/17 03/06/17 20:17 02:41 02:41 WBC 6.0 RBC 4.11 Hgb 12.1 Hct 35.1 L MCV 85.4 MCH 29.4 MCHC 34.5 RDW 12.6 Plt Count 56 L MPV 13.8 H Immature Gran % 0.8 Seg Neutrophils % 42.1 Lymphocytes % 50.8 Monocytes % 4.5 Eosinophils % 0.3 Basophils % 1.5 Neutrophils # 2.5 Lymphocytes # 3.1 Monocytes # 0.3 Eosinophils # 0.0 Basophils # 0.1 Reactive Lymphocytes Present A Platelet Estimate Decreased L Large Platelets Present A Immature Plt Fraction 24.7 H Sodium 135 L Potassium 3.3 L Chloride 99 Carbon Dioxide 27 BUN 15 Creatinine 0.86 Est GFR ( Amer) > 60 Est GFR (Non-Af Amer) > 60 BUN/Creatinine Ratio 17 Glucose 93 Calculated Osmolality 281 Lactic Acid Calcium 8.2 L Magnesium 2.1 Total Bilirubin 1.2 AST 122 H ALT 115 H Alkaline Phosphatase 90 Serum Total Protein 5.9 L Albumin 3.1 L Globulin 2.8 Albumin/Globulin Ratio 1.1 Chlamy pneumoniae PCR Adenovirus (PCR) B. pertussis DNA (PCR) Coronavirus OC43 (PCR) Coronavirus HKU1 (PCR) Coronavirus 229E (PCR) Coronavirus NL63 (PCR) Hepatitis A IgM Ab Nonreactive Hep Bs Antigen Nonreactive Hepatitis C Ab Screen Nonreactive HIV Ag/Ab Combo Qual Human Metapneumovir PCR Influenza A (H1) PCR Influ A (H1N1/09) PCR Influenza A (H3) PCR Influenza A Untype (PCR) Influenza Type B (PCR) M.pneumoniae DNA (PCR) Parainfluenza 1 (PCR) Parainfluenza 2 (PCR) Parainfluenza 3 (PCR) Parainfluenza 4 (PCR) RSV (PCR) Entero/Rhino (PCR) Cultures: Serology 03/05/17 03/05/17 03/05/17 Range/Units 20:17 20:17 14:30 Chlamy pneumoniae PCR Not Detected (Not Detect) Adenovirus (PCR) Not Detected (Not Detect) B. pertussis DNA (PCR) Not Detected (Not Detect) Coronavirus OC43 (PCR) Not Detected (Not Detect) Coronavirus HKU1 (PCR) Not Detected (Not Detect) Coronavirus 229E (PCR) Not Detected (Not Detect) Coronavirus NL63 (PCR) Not Detected (Not Detect) Hepatitis A IgM Ab Nonreactive (Nonreactive) Hep Bs Antigen Nonreactive (Nonreactive) Hepatitis C Ab Screen Nonreactive (Nonreactive) HIV Ag/Ab Combo Qual Nonreactive (Nonreactive) Human Metapneumovir PCR Not Detected (Not Detect) Influenza A (H1) PCR Not Detected (Not Detect) Influ A (H1N1/09) PCR Not Detected (Not Detect) Influenza A (H3) PCR Not Detected (Not Detect) Influenza A Untype (PCR) Not Detected (Not Detect) Influenza Type B (PCR) Not Detected (Not Detect) M.pneumoniae DNA (PCR) Not Detected (Not Detect) Parainfluenza 1 (PCR) Not Detected (Not Detect) Parainfluenza 2 (PCR) Not Detected (Not Detect) Parainfluenza 3 (PCR) Not Detected (Not Detect) Parainfluenza 4 (PCR) Not Detected (Not Detect) RSV (PCR) Not Detected (Not Detect) Entero/Rhino (PCR) Not Detected (Not Detect) - Impressions Impressions Abdomen Ultrasound 03/06/17 08:00 IMPRESSION: 1. Diffuse hepatic steatosis with probable focal area of sparing measuring 3.7 x 2.5 x 2.2 cm. Finding can be confirmed with dedicated MRI liver with Gadavist. 2. Status post cholecystectomy. Prominent common bile duct measures 8 mm. If there is clinical concern for biliary obstruction, MRCP is recommended. D/ / 03/06/2017 09:21:58 Raya Brito MD / [email or web address] Interpreting Provider: Raya Brito MD Exam - Constitutional Vitals: Temp Pulse Resp BP Pulse Ox 98.4 F 80 16 107/59 95 03/06/17 11:14 03/06/17 11:14 03/06/17 11:14 03/06/17 11:14 03/06/17 11:14 General appearance: average body habitus, cooperative, no acute distress - Head Head exam: Present: atraumatic, normal inspection, normocephalic - Eye Eye exam: Present: EOMI, normal appearance, PERRL Pupils: Present: normal accommodation - ENT ENT exam: Present: mucous membranes moist - Neck Neck exam: Present: normal inspection - Respiratory Respiratory exam: Present: CTAB. Absent: rales, respiratory distress, rhonchi, wheezes - Cardiovascular Cardiovascular exam: Present: RRR, +S1, +S2 - GI/Abdominal GI/Abdominal exam: Present: normal bowel sounds, soft. Absent: distended, tenderness - Extremities Exam Extremities exam: Present: normal inspection. Absent: joint swelling, pedal edema, tenderness - Back Exam Back exam: Present: normal inspection. Absent: rash noted - Neurological Exam Neurological exam: Present: alert, oriented X3, no focal deficits - Psychiatric Psychiatric exam: Present: normal affect, normal mood - Skin Skin exam: Present: dry, intact, normal color, warm - VTE Documentation of Mechanical Device: Intermittent pneumatic compression device Consult Discharge Plan - Plan Referrals: Corey Phillip MD [Primary Care Provider] - 03/13/17 4:00 pm - Attending Attestation I examined this patient and my medical decision-making was reviewed with the TALENT ANALYST/PA/Advanced Practice Nurse/Resident Physician. I agree with the documented findings, disposition and treatment plan as described except to the extent set forth below.
[2017-03-06] MEDS ORDERED: Potassium Chloride Elixir 20 MEQ/15 ML UDC PO ONE (15:18)
--- NOTE | 2017-03-06 15:27 | Internal Med Progress Note ---
Date of Encounter: 03/06/17 Time of Encounter: 15:25 - Assessment and plan (1) SIRS (systemic inflammatory response syndrome) Current Visit: Yes Status: Acute (2) Hypomagnesemia Current Visit: Yes Status: Acute (3) Fever of unknown origin Current Visit: Yes Status: Acute (4) Acute confusion Current Visit: Yes Status: Acute (5) Tick bite Current Visit: Yes Status: Acute Qualifiers: Encounter type: initial encounter Qualified Code(s): W57.XXXA - Bitten or stung by nonvenomous insect and other nonvenomous arthropods, initial encounter (6) Acute encephalopathy Current Visit: Yes Status: Resolved (7) Hypokalemia Current Visit: Yes Status: Acute (8) Thrombocytopenia Current Visit: Yes Status: Acute (9) Elevated LFTs Current Visit: Yes Status: Acute - Subjective Interval history: Mrs. Carine Lucia is a 66-year-old female presented with a week history of deteriorating symptoms of high fever with headache and neck pain as well as altered mental status and nausea vomiting diarrhea. She was bitten by ticks 2 weeks before she developed these symptoms. Those takes were removed. She went to an urgent care where she was diagnosed with viral illness and was not given any antibiotics. As symptoms did not subside and she was brought to Hospital ER where a CT head was done which was unremarkable. Later a lumbar puncture was performed and again it is neutral for infection. Most of the organisms associated with tick bite for check on the panel and so far they have been reported negative but full report is pending. Infectious disease and neurology has seen the patient. Neurologist essentially did not find any significant finding and rule out any further neurological workup. Infectious disease has a started patient on doxycycline imperatively. On lab studies patient has mildly abnormal liver function test with the total bilirubin 1.7 AST and ALTs in the range of 85 only. Her platelets are down quite significantly in the range of 60 ,000. I have added hepatitis panel ultrasound of the liver and repeat CBC and CMP for tomorrow. I noted she has hypokalemia and hypomagnesemia with potassium 2.6 and magnesium 1.4. We will supplement both and recheck in the morning. Although she has an interesting story for tick bite fever but she is missing a few essential features like absence of rash or any lymphadenopathy. Patient's symptoms are improving. She is afebrile with no headache or neck pain or rigidity and diarrhea has stopped down only 2 episodes so far she is on IV doxycycline. Serologies are pending and I have added ultrasound of the liver and a hepatitis profile considering that her liver function tests are mildly abnormal. We will repeat CBC CMP in the morning. We will want to keep an eye on platelet counts 03/06 patient feels normal. No dizziness headache neck pain and joint pain. Infectious disease feels that the rapid positive response after starting IV doxycycline indicates tick bite fever. Her CSF serologies are absolutely negative. Hepatitis B antigen C serologies also negative. Ultrasound of liver showed fatty liver with us. Area for which we will get an MRI before she goes home as this week gastroenterology is not available. We will ask her to follow with gastroenterology. I check her fasting lipid profile to see if she has hypertriglyceridemia. Potassium will be supplemented and I think it was secondary to diarrhea which is improving. Anticipate discharge in 1-2 days - Constitutional Vitals: Temp Pulse Resp BP Pulse Ox 98.4 F 80 16 107/59 95 03/06/17 11:14 03/06/17 11:14 03/06/17 11:14 03/06/17 11:14 03/06/17 11:14 - Head Head exam: Present: atraumatic, normocephalic - Eye Eye exam: Present: PERRL, conjuntiva pink, sclera anicteric Pupils: Present: PERRL - Neck Neck exam general surgery: Present: supple, trachea midline. Absent: lymphadenopathy - Respiratory Respiratory exam: Present: CTAB. Absent: accessory muscle use, rales, rhonchi, wheezes - Cardiovascular Cardiovascular exam: Present: RRR, +S1, +S2. Absent: diastolic murmur, gallop, rubs, systolic murmur - GI/Abdominal GI/Abdominal exam: Present: normal bowel sounds, soft, no peritoneal signs. Absent: distended, tenderness - Extremities Exam Extremities exam: Present: warm, radial pulses palpable and symetrical. Absent : calf tenderness, cyanotic, pedal edema - Neurological Exam Neurological exam: Present: CN II-XII intact, oriented X3, no focal deficits. Absent: pronater drift, facial droop, speech deficit - Skin Skin exam: Present: dry, intact Internal Medicine: Result - Labs CBC & Chem 7: 03/06/17 02:41 03/06/17 02:41 Labs: Short CBC 03/06/17 Range/Units 02:41 WBC 6.0 (4.3-11.1) K/mcL Hgb 12.1 (11.5-15.4) g/dL Hct 35.1 L (35.3-44.9) % Plt Count 56 L (140-400) K/mcL Neutrophils # 2.5 (1.6-8.9) K/mcL BMP 03/06/17 02:41 Sodium 135 L Potassium 3.3 L Chloride 99 Carbon Dioxide 27 BUN 15 Creatinine 0.86 Glucose 93 Calcium 8.2 L Liver Function 03/06/17 Range/Units 02:41 Total Bilirubin 1.2 (0.2-1.2) mg/dL AST 122 H (5-34) Units/L ALT 115 H (0-55) Units/L Alkaline Phosphatase 90 (38-126) Units/L Albumin 3.1 L (3.5-5.0) g/dL - ABG Interpretation ABG results: PT/INR, D-dimer PT 13.6 Seconds (9.4-12.1) H 03/04/17 15:00 - Impressions Impressions Abdomen Ultrasound 03/06/17 08:00 IMPRESSION: 1. Diffuse hepatic steatosis with probable focal area of sparing measuring 3.7 x 2.5 x 2.2 cm. Finding can be confirmed with dedicated MRI liver with Gadavist. 2. Status post cholecystectomy. Prominent common bile duct measures 8 mm. If there is clinical concern for biliary obstruction, MRCP is recommended. D/ / 03/06/2017 09:21:58 Raya Brito MD / [facility] Interpreting Provider: Raya Brito MD - VTE Documentation of Mechanical Device: Intermittent pneumatic compression device Consult Discharge Plan - Plan Referrals: Corey Phillip MD [Primary Care Provider] - 03/13/17 4:00 pm
[2017-03-07 04:38] LABS: Mean Platelet Volume 14.1 fL (9.4-12.4)
[2017-03-07 04:40] LABS: Basophils # 0.1 K/mcL (0.0-0.2); Basophils % 1.3 %; Eosinophils # 0.1 K/mcL (0.0-0.6); Eosinophils % 0.9 %; Hemoglobin 11.7 g/dL (11.5-15.4); Immature Granulocytes % 0.6 % (0-4); Immature Platelets 25.1 % (1.1-6.1); Lymphocytes # 4.5 K/mcL (0.6-4.6); Lymphocytes % 56.7 %; Mean Corpuscular HGB Conc 34.4 g/dL (31.6-35.5); Mean Corpuscular Hemoglobin 29.3 pg (28.0-33.3); Monocytes % 12.4 %; Neutrophils # 2.3 K/mcL (1.6-8.9); Red Cell Distribution Width 12.7 % (11.5-14.5); Segmented Neutrophils % 28.1 %
[2017-03-07 04:46] LABS: Platelet Count 80 K/mcL (140-400)
[2017-03-07 04:54] LABS: Alanine Aminotransferase 90 Units/L (0-55); Albumin 3.1 g/dL (3.5-5.0); Albumin/Globulin Ratio 1.1 (1.1-2.2); Alkaline Phosphatase 87 Units/L (38-126); Aspartate Amino Transferase 64 Units/L (5-34); BUN/Creatinine Ratio 19 (6-26); Bilirubin,Total 0.8 mg/dL (0.2-1.2); Blood Urea Nitrogen 14 mg/dL (7-20); Calcium 8.4 mg/dL (8.6-10.8); Carbon Dioxide 27 mEq/L (19-29); Chloride 101 mEq/L (98-109); Globulin 2.7 g/dL (2.4-3.5); Glucose 103 mg/dL (70-99); Magnesium 1.7 mg/dL (1.6-2.6); Osmolality,Calculated 281 (280-300); Potassium 3.4 mEq/L (3.5-4.5); Sodium 135 mEq/L (136-145); Total Protein 5.8 g/dL (6.0-8.3); eGFR For African Americans > 60 (> 60); eGFR For Non-African Americans > 60 (> 60)
[2017-03-07 05:09] LABS: Platelet Estimate Decreased (Normal)
[2017-03-07 05:10] LABS: Large Platelets Present (Not Present); Reactive Lymphocytes Present (Not Present)
[2017-03-07 08:33] LABS: Borrelia burgdorferi Abs CSF 0.05 LIV (<=0.99)
[2017-03-07] MEDS: Cholecalciferol (D-3) 1,000 UNIT TABLET PO SCH (08:52)
[2017-03-07] MEDS: Aspirin Enteric Coated 81 MG Tablet PO SCH (08:52)
[2017-03-07] MEDS: Doxycycline 100 MG CAPSULE PO SCH ×2 (08:52→21:39)
[2017-03-07] MEDS ORDERED: Potassium Chloride Elixir 20 MEQ/15 ML UDC PO ONE (10:54)
[2017-03-07 11:15] LABS: Chol/HDL Ratio 9.1 (0-4.9); Cholesterol 73 mg/dL (< 200); HDL Cholesterol 8 mg/dL (40-59); LDL Cholesterol,Calculated 19 mg/dL (0-99); Triglycerides 232 mg/dL (< 150)
[2017-03-07] MEDS ORDERED: Loperamide 1 MG/5 ML UDC PO PRN (12:24)
--- NOTE | 2017-03-07 15:04 | Internal Med Progress Note ---
Date of Encounter: 03/07/17 Time of Encounter: 15:03 - Assessment and plan (1) SIRS (systemic inflammatory response syndrome) Current Visit: Yes Status: Acute (2) Hypomagnesemia Current Visit: Yes Status: Acute (3) Fever of unknown origin Current Visit: Yes Status: Acute (4) Acute confusion Current Visit: Yes Status: Acute (5) Tick bite Current Visit: Yes Status: Acute Qualifiers: Encounter type: initial encounter Qualified Code(s): W57.XXXA - Bitten or stung by nonvenomous insect and other nonvenomous arthropods, initial encounter (6) Acute encephalopathy Current Visit: Yes Status: Resolved (7) Hypokalemia Current Visit: Yes Status: Acute (8) Thrombocytopenia Current Visit: Yes Status: Acute (9) Elevated LFTs Current Visit: Yes Status: Acute - Subjective Interval history: Mrs. Carine Lucia is a 66-year-old female presented with a week history of deteriorating symptoms of high fever with headache and neck pain as well as altered mental status and nausea vomiting diarrhea. She was bitten by ticks 2 weeks before she developed these symptoms. Those takes were removed. She went to an urgent care where she was diagnosed with viral illness and was not given any antibiotics. As symptoms did not subside and she was brought to Hospital ER where a CT head was done which was unremarkable. Later a lumbar puncture was performed and again it is neutral for infection. Most of the organisms associated with tick bite for check on the panel and so far they have been reported negative but full report is pending. Infectious disease and neurology has seen the patient. Neurologist essentially did not find any significant finding and rule out any further neurological workup. Infectious disease has a started patient on doxycycline imperatively. On lab studies patient has mildly abnormal liver function test with the total bilirubin 1.7 AST and ALTs in the range of 85 only. Her platelets are down quite significantly in the range of 60 ,000. I have added hepatitis panel ultrasound of the liver and repeat CBC and CMP for tomorrow. I noted she has hypokalemia and hypomagnesemia with potassium 2.6 and magnesium 1.4. We will supplement both and recheck in the morning. Although she has an interesting story for tick bite fever but she is missing a few essential features like absence of rash or any lymphadenopathy. Patient's symptoms are improving. She is afebrile with no headache or neck pain or rigidity and diarrhea has stopped down only 2 episodes so far she is on IV doxycycline. Serologies are pending and I have added ultrasound of the liver and a hepatitis profile considering that her liver function tests are mildly abnormal. We will repeat CBC CMP in the morning. We will want to keep an eye on platelet counts 03/06 patient feels normal. No dizziness headache neck pain and joint pain. Infectious disease feels that the rapid positive response after starting IV doxycycline indicates tick bite fever. Her CSF serologies are absolutely negative. Hepatitis B antigen C serologies also negative. Ultrasound of liver showed fatty liver with us. Area for which we will get an MRI before she goes home as this week gastroenterology is not available. We will ask her to follow with gastroenterology. I check her fasting lipid profile to see if she has hypertriglyceridemia. Potassium will be supplemented and I think it was secondary to diarrhea which is improving. Anticipate discharge in 1-2 days 03/07 since last night started having profuse diarrhea. Stool culture and C. difficile ordered. Potassium is noted low and will be supplemented and recheck. Overall she is feeling better and so far her serologies are negative. She is doing very well otherwise on doxycycline. - Constitutional Vitals: Temp Pulse Resp BP Pulse Ox 98.3 F 71 16 103/69 98 03/07/17 14:53 03/07/17 14:53 03/07/17 14:53 03/07/17 14:53 03/07/17 14:53 - Head Head exam: Present: atraumatic, normocephalic - Eye Eye exam: Present: PERRL, conjuntiva pink, sclera anicteric Pupils: Present: PERRL - Neck Neck exam general surgery: Present: supple, trachea midline. Absent: lymphadenopathy - Respiratory Respiratory exam: Present: CTAB. Absent: accessory muscle use, rales, rhonchi, wheezes - Cardiovascular Cardiovascular exam: Present: RRR, +S1, +S2. Absent: diastolic murmur, gallop, rubs, systolic murmur - GI/Abdominal GI/Abdominal exam: Present: normal bowel sounds, soft, no peritoneal signs. Absent: distended, tenderness - Extremities Exam Extremities exam: Present: warm, radial pulses palpable and symetrical. Absent : calf tenderness, cyanotic, pedal edema - Neurological Exam Neurological exam: Present: CN II-XII intact, oriented X3, no focal deficits. Absent: pronater drift, facial droop, speech deficit - Skin Skin exam: Present: dry, intact Internal Medicine: Result - Labs CBC & Chem 7: 03/07/17 04:05 03/07/17 04:05 Labs: Short CBC 03/07/17 Range/Units 04:05 WBC 8.0 (4.3-11.1) K/mcL Hgb 11.7 (11.5-15.4) g/dL Hct 34.0 L (35.3-44.9) % Plt Count 80 L (140-400) K/mcL Neutrophils # 2.3 (1.6-8.9) K/mcL BMP 03/07/17 04:05 Sodium 135 L Potassium 3.4 L Chloride 101 Carbon Dioxide 27 BUN 14 Creatinine 0.75 Glucose 103 H Calcium 8.4 L Liver Function 03/07/17 Range/Units 04:05 Total Bilirubin 0.8 (0.2-1.2) mg/dL AST 64 H (5-34) Units/L ALT 90 H (0-55) Units/L Alkaline Phosphatase 87 (38-126) Units/L Albumin 3.1 L (3.5-5.0) g/dL - ABG Interpretation ABG results: PT/INR, D-dimer PT 13.6 Seconds (9.4-12.1) H 03/04/17 15:00 - Impressions Impressions Abdomen MRI 03/06/17 15:18 IMPRESSION: 1. No acute abnormalities are identified in the abdomen. 2. Mild hepatomegaly with moderate to severe hepatic steatosis. Focal fatty sparing in central portions of segments 5 and 6 accounts for the sonographic finding. 3. Minimal extrahepatic biliary dilation within normal limits given cholecystectomy and age. 4. A few additional incidental findings as above. D/ / Jan Cisneros MD / Jan Cisneros MD Interpreting Provider: Jan Cisneros MD - VTE Documentation of Mechanical Device: Venous foot pump, device Consult Discharge Plan - Plan Referrals: Corey Phillip MD [Primary Care Provider] - 03/13/17 4:00 pm
[2017-03-08 04:27] LABS: Basophils # 0.1 K/mcL (0.0-0.2); Basophils % 1.2 %; Eosinophils # 0.1 K/mcL (0.0-0.6); Eosinophils % 0.9 %; Hematocrit 35.8 % (35.3-44.9); Hemoglobin 12.1 g/dL (11.5-15.4); Immature Granulocytes % 0.9 % (0-4); Lymphocytes % 72.4 %; Mean Corpuscular HGB Conc 33.8 g/dL (31.6-35.5); Mean Corpuscular Hemoglobin 29.6 pg (28.0-33.3); Mean Corpuscular Volume 87.5 fL (83.0-100.0); Mean Platelet Volume 13.2 fL (9.4-12.4); Monocytes # 0.6 K/mcL (0.0-1.3); Monocytes % 5.7 %; Neutrophils # 1.8 K/mcL (1.6-8.9); Platelet Count 106 K/mcL (140-400); Red Blood Count 4.09 M/mcL (3.82-4.97); Red Cell Distribution Width 12.7 % (11.5-14.5); Segmented Neutrophils % 18.9 %
[2017-03-08 04:41] LABS: Alanine Aminotransferase 123 Units/L (0-55); Albumin 3.1 g/dL (3.5-5.0); Albumin/Globulin Ratio 1.1 (1.1-2.2); Alkaline Phosphatase 88 Units/L (38-126); Aspartate Amino Transferase 128 Units/L (5-34); BUN/Creatinine Ratio 18 (6-26); Bilirubin,Total 0.6 mg/dL (0.2-1.2); Blood Urea Nitrogen 14 mg/dL (7-20); Calcium 8.9 mg/dL (8.6-10.8); Carbon Dioxide 28 mEq/L (19-29); Chloride 103 mEq/L (98-109); Globulin 2.9 g/dL (2.4-3.5); Glucose 98 mg/dL (70-99); Magnesium 1.7 mg/dL (1.6-2.6); Osmolality,Calculated 284 (280-300); Potassium 3.6 mEq/L (3.5-4.5); Sodium 137 mEq/L (136-145); eGFR For African Americans > 60 (> 60); eGFR For Non-African Americans > 60 (> 60)
[2017-03-08 05:03] LABS: Platelet Estimate Decreased (Normal); Reactive Lymphocytes Present (Not Present)
[2017-03-08] MEDS: Doxycycline 100 MG CAPSULE PO SCH (09:19)
[2017-03-08] MEDS: Cholecalciferol (D-3) 1,000 UNIT TABLET PO SCH (09:19)
[2017-03-08] MEDS: Aspirin Enteric Coated 81 MG Tablet PO SCH (09:19)
[2017-03-08 11:38] VITALS: BP 121/72
--- NOTE | 2017-03-08 12:16 | Discharge Summary ---
Date of Encounter: 03/08/17 Time of Encounter: 12:11 - Discharge Diagnosis (1) SIRS (systemic inflammatory response syndrome) Priority: Secondary Status: Acute (2) Hypomagnesemia Priority: Secondary Status: Acute (3) Acute confusion Priority: Secondary Status: Acute (4) Acute encephalopathy Priority: Primary Status: Resolved (5) Hypokalemia Priority: Secondary Status: Acute (6) Thrombocytopenia Priority: Secondary Status: Acute (7) Elevated LFTs Priority: Secondary Status: Acute (8) Tick bite Priority: Secondary Status: Acute Qualifiers: Encounter type: initial encounter Qualified Code(s): W57.XXXA - Bitten or stung by nonvenomous insect and other nonvenomous arthropods, initial encounter (9) Fever Priority: Primary Status: Acute Comments: Perhaps related to tick bite improved with doxycycline and Qualifiers: Fever type: due to other condition Qualified Code(s): R50.81 - Fever presenting with conditions classified elsewhere (10) Fatty liver Priority: Secondary Status: Acute - Discharge Medications Prescriptions: Doxycycline Hyclate [Vibramycin] 100 mg PO BID #20 capsule Home Medications: Aspirin Enteric Coated [Aspirin EC] 81 mg PO DAILY 03/04/17 [History] Carvedilol [Coreg] 6.25 mg PO BIDWM 03/04/17 [History] Cholecalciferol (Vitamin D3) [Vitamin D3] 5,000 unit PO DAILY 03/04/17 [History] Indapamide [Lozol] 1.25 mg PO DAILY 03/04/17 [History] Lisinopril 2.5 mg PO DAILY 03/04/17 [History] Simvastatin [Zocor] 40 mg PO HS 03/04/17 [History] Doxycycline Hyclate [Vibramycin] 100 mg PO BID #20 capsule 03/08/17 [Rx] Allergies/Adverse Reactions: Allergies No Known Allergies Allergy (Verified 03/04/17 13:00) Procedures/tests Complete & Pending: Procedures Performed prior 72 hours Category Date Time Status US abdomen limited [US] Routine Exams 03/06/17 08:00 Draft MR abdomen wo/w con [MR] Routine MRI 03/06/17 15:18 Completed Date of admission: 03/05/17 14:16 Primary care physician: Corey Phillip MD Discharging clinician: Dani Urrutia Anticipated date of discharge: 03/08/17 - Patient Status Disposition: Home, Self-Care Condition: Good Overall status at discharge: patient is progressing back to baseline - Discharge Instructions Instructions: Tick Bite (DC), Sepsis (DC) Follow Up With: Corey Phillip MD [Primary Care Provider] - 03/13/17 4:00 pm - Diet and Activity Activity: resume usual activities as tolerated Diet: advance to your usual diet Hospital course: Mrs. Carine Lucia is a 66-year-old female presented with a week history of deteriorating symptoms of high fever with headache and neck pain as well as altered mental status and nausea vomiting diarrhea. She was bitten by ticks 2 weeks before she developed these symptoms. Those takes were removed. She went to an urgent care where she was diagnosed with viral illness and was not given any antibiotics. As symptoms did not subside and she was brought to Hospital ER where a CT head was done which was unremarkable. Later a lumbar puncture was performed and again it is neutral for infection. Serologies remain negative.. Infectious disease and neurology has seen the patient. Neurologist essentially did not find any significant finding and rule out any further neurological workup. Infectious disease has a started patient on doxycycline imperatively. O Ultrasound and hepatitis and was negative. She is advised to get a follow-up LFTs as outpatient but I suspect these numbers are due to tick bite fever. Hepatitis B antigen C serologies also negative. Ultrasound of liver showed fatty liver. MRI liver did not show any cancer and confirmed fatty liver mainly. n lab studies patient has mildly abnormal liver function test with the total bilirubin 1.7 AST and ALTs in the range of 85 only. Now total bilirubin is okay but AST ALTs hanging around 120 range. LFTs are slightly elevated but they are not worsening and they do not correlate clinically anyways. Platelets are down but there was stabilizing and improving.. I have added hepatitis panel ultrasound of the liver and repeat CBC and CMP for tomorrow. I noted she has hypokalemia and hypomagnesemia with potassium 2.6 and magnesium 1.4. We will supplement both and recheck in the morning. She had diarrhea which stopped spontaneously. C. difficile negative.For same reason potassium went down which was supplemented. Patient's symptoms are improving. She is afebrile with no headache or neck pain or rigidity and diarrhea has stopped she can return to her family doctor and have infectious disease doctor and follow with them as outpatient. - Time Spent with Patient Total time spent providing and/or coordinating discharge services: Greater than 30 minutes - Constitutional Vitals: Temp Pulse Resp BP Pulse Ox 98.2 F 66 15 121/72 98 03/08/17 11:38 03/08/17 11:38 03/08/17 11:38 03/08/17 11:38 03/08/17 11:38 - Head Head exam: Present: atraumatic, normocephalic - Eye Eye exam: Present: PERRL, conjuntiva pink, sclera anicteric Pupils: Present: PERRL - Neck Neck exam general surgery: Present: supple, trachea midline. Absent: lymphadenopathy - Respiratory Respiratory exam: Present: CTAB. Absent: accessory muscle use, rales, rhonchi, wheezes - Cardiovascular Cardiovascular exam: Present: RRR, +S1, +S2. Absent: diastolic murmur, gallop, rubs, systolic murmur - GI/Abdominal GI/Abdominal exam: Present: normal bowel sounds, soft, no peritoneal signs. Absent: distended, tenderness - Extremities Exam Extremities exam: Present: warm, radial pulses palpable and symetrical. Absent : calf tenderness, cyanotic, pedal edema - Neurological Exam Neurological exam: Present: CN II-XII intact, oriented X3, no focal deficits. Absent: pronater drift, facial droop, speech deficit - Skin Skin exam: Present: dry, intact - VTE Documentation of Mechanical Device: Intermittent pneumatic compression device
[2017-03-13 08:15] LABS: Anaplasma phagocytophilum IgG <1:80 (<1:80); Anaplasma phagocytophilum IgM < 1:16 (< 1:16)
== END 2017-03-08 15:15 | disposition home or self-care (01) | DRG 865 ==
LOC: EMEROO 12:51 → 3BNU 12:51
PROVIDERS: ADMIT Internal Medicine Endocrinology, Diabetes & Metabolism; ATTEND Registered Nurse